=== PATIENT | male | born 1995 | race Caucasian/White ===

== ENCOUNTER 2017-03-29 15:52 | Inpatient (IN) | payer BC ==
[2017-03-29 16:30] LABS: BASO # 0.1 x10^3/uL (0.0-0.2); BASO % 1 % (0-3); EOS # 13.3 x10^3/uL (0.0-0.7); EOS % 52 % (0-3); HEMATOCRIT 41.9 % (39.0-53.0); HEMOGLOBIN 14.4 g/dL (13.0-17.5); LYMPH # 4.1 x10^3/uL (1.0-4.8); LYMPH % 16 % (24-48); MEAN CORPUSCULAR HEMOGLOBIN 30 pg (25-35); MEAN CORPUSCULAR HGB CONC 34 g/dL (31-37); MEAN CORPUSCULAR VOLUME 86 fL (79-100); MONO # 1.2 x10^3/uL (0.0-1.1); MONO % 5 % (0-9); NEUT # 6.7 x10^3uL (1.8-7.7); NEUT % 26 % (31-73); PLATELET COUNT 369 x10^3/uL (140-400); RED BLOOD COUNT 4.89 x10^6/uL (4.30-5.70); RED CELL DISTRIBUTION WIDTH 14.1 % (11.5-14.5); WHITE BLOOD COUNT 25.5 x10^3/uL (4.0-11.0)
[2017-03-29 16:38] LABS: ANION GAP 8 (6-14); BLOOD UREA NITROGEN 10 mg/dL (8-26); BUN/CREATININE RATIO 10 (6-20); CALCIUM 8.5 mg/dL (8.5-10.1); CARBON DIOXIDE 28 mmol/L (21-32); CHLORIDE 106 mmol/L (98-107); GFR 93.4; GLUCOSE 96 mg/dL (70-99); POTASSIUM 3.6 mmol/L (3.5-5.1); SODIUM 142 mmol/L (136-145)
[2017-03-29 16:40] LABS: ADD MAN DIFF? YES
[2017-03-29 16:46] LABS: ALBUMIN 3.8 g/dL (3.4-5.0); ALBUMIN/GLOBULIN RATIO 1.1 (1.0-1.7); ALK PHOS 106 U/L (46-116); ALT (SGPT) 52 U/L (16-63); AST (SGOT) 24 U/L (15-37); LIPASE 89 U/L (73-393); TOTAL BILIRUBIN 0.3 mg/dL (0.2-1.0); TOTAL PROTEIN 7.3 g/dL (6.4-8.2)
[2017-03-29] MEDS: ONDANSETRON PF 4 MG/2 ML VIAL. IV (17:06)
[2017-03-29] MEDS: IV NORMAL SALINE 1000ML BAG 1,000 ML IV ×2 (17:06→22:03)
[2017-03-29 17:16] LABS: BILIRUBIN,URINE NEGATIVE (NEG); CLARITY,URINE CLEAR; COLOR,URINE YELLOW; GLUCOSE,URINE NEGATIVE (NEG); NITRITE,URINE NEGATIVE (NEG); PROTEIN,URINE NEGATIVE (NEG-TRACE); UROBILINOGEN,URINE 0.2 mg/dL (0.2 mg/dL)
[2017-03-29 17:24] LABS: BACTERIA,URINE 0 /HPF (0-FEW); RBC,URINE OCC /HPF (0-2); WBC,URINE OCC /HPF (0-4)
[2017-03-29 17:40] LABS: % ATYL 6 % (0-0); % BANDS 1 % (0-9); % EOS 58 % (0-5); % LYMPHS 6 % (24-48); % MONOS 4 % (0-10); % SEGS 25 % (35-66); PLT ESTIMATE ADEQUATE (ADEQUATE)
[2017-03-29] MEDS: IOHEXOL 300 MG/ML 100ML VIAL. IV (18:15)
[2017-03-29] MEDS ORDERED: ONDANSETRON PF 4 MG/2 ML VIAL. IV ×2 (18:30)
[2017-03-29] MEDS ORDERED: MORPHINE SULFATE 2 MG/ML DISP.SYRIN. IV (18:30)
[2017-03-29] MEDS ORDERED: hydrALAZINE 20 MG/ML VIAL. IVP (18:30)
[2017-03-29] MEDS ORDERED: CONTRAST GIVEN MC (18:30)
[2017-03-29] MEDS ORDERED: traMADol 50 MG TABLET PO (18:30)
[2017-03-29] MEDS ORDERED: DOCUSATE SODIUM 100 MG CAPSULE. PO (18:30)
[2017-03-29] MEDS ORDERED: ACETAMINOPHEN 325 MG TABLET. PO (18:30)
[2017-03-29] MEDS: ENOXAPARIN 40 MG/0.4 ML SYRINGE. SQ (21:00)
[2017-03-30 05:03] LABS: ADD MAN DIFF? NO
[2017-03-30 05:15] LABS: BASO % 0 % (0-3); EOS # 11.5 x10^3/uL (0.0-0.7); EOS % 43 % (0-3); HEMATOCRIT 47.8 % (39.0-53.0); HEMOGLOBIN 16.2 g/dL (13.0-17.5); LYMPH # 3.7 x10^3/uL (1.0-4.8); LYMPH % 14 % (24-48); MEAN CORPUSCULAR HEMOGLOBIN 29 pg (25-35); MEAN CORPUSCULAR HGB CONC 34 g/dL (31-37); MEAN CORPUSCULAR VOLUME 86 fL (79-100); MONO # 1.3 x10^3/uL (0.0-1.1); MONO % 5 % (0-9); NEUT % 38 % (31-73); PLATELET COUNT 375 x10^3/uL (140-400); RED BLOOD COUNT 5.55 x10^6/uL (4.30-5.70); RED CELL DISTRIBUTION WIDTH 14.3 % (11.5-14.5); WHITE BLOOD COUNT 26.6 x10^3/uL (4.0-11.0)
[2017-03-30 05:23] LABS: ANION GAP 7 (6-14); BLOOD UREA NITROGEN 8 mg/dL (8-26); CALCIUM 8.4 mg/dL (8.5-10.1); CARBON DIOXIDE 27 mmol/L (21-32); CHLORIDE 106 mmol/L (98-107); GFR 93.4; GLUCOSE 89 mg/dL (70-99); POTASSIUM 3.5 mmol/L (3.5-5.1); SODIUM 140 mmol/L (136-145)
[2017-03-30] MEDS: IV NORMAL SALINE 1000ML BAG 1,000 ML IV ×2 (05:57→14:20)
[2017-03-30] MEDS: PANTOPRAZOLE 40 MG TABLET.DR. PO (07:30)
[2017-03-30 08:46] LABS: BARBITURATES NEG (NEG); BENZODIAZEPINES NEG (NEG); CANNABINOIDS NEG (NEG); COCAINE NEG (NEG); METHADONE NEG (NEG); OPIATES NEG (NEG); PHENCYCLIDINE NEG (NEG)
[2017-03-30 08:49] LABS: AMPHETAMINE/METHAMPHETAMINE NEG (NEG); ETHANOL, URINE NEG (NEG)
[2017-03-30] MEDS: ENOXAPARIN 40 MG/0.4 ML SYRINGE. SQ (21:00)
[2017-03-31 05:05] LABS: ADD MAN DIFF? NO
[2017-03-31 05:11] LABS: BASO % 0 % (0-3); EOS % 52 % (0-3); HEMATOCRIT 46.7 % (39.0-53.0); HEMOGLOBIN 15.9 g/dL (13.0-17.5); LYMPH # 2.9 x10^3/uL (1.0-4.8); LYMPH % 14 % (24-48); MEAN CORPUSCULAR HEMOGLOBIN 29 pg (25-35); MEAN CORPUSCULAR HGB CONC 34 g/dL (31-37); MEAN CORPUSCULAR VOLUME 86 fL (79-100); MONO # 1.1 x10^3/uL (0.0-1.1); MONO % 5 % (0-9); NEUT # 6.1 x10^3uL (1.8-7.7); NEUT % 29 % (31-73); PLATELET COUNT 359 x10^3/uL (140-400); RED BLOOD COUNT 5.43 x10^6/uL (4.30-5.70); WHITE BLOOD COUNT 21.1 x10^3/uL (4.0-11.0)
[2017-03-31 05:18] LABS: INR 1.1 (0.8-1.1); PROTHROMBIN TIME PATIENT 13.7 SEC (11.7-14.0)
[2017-03-31] MEDS: PANTOPRAZOLE 40 MG TABLET.DR. PO (05:24)
[2017-03-31 05:33] LABS: ANION GAP 7 (6-14); BLOOD UREA NITROGEN 8 mg/dL (8-26); CALCIUM 8.8 mg/dL (8.5-10.1); CARBON DIOXIDE 26 mmol/L (21-32); CHLORIDE 105 mmol/L (98-107); CREATININE 0.9 mg/dL (0.7-1.3); GFR 105.5; GLUCOSE 95 mg/dL (70-99); POTASSIUM 3.7 mmol/L (3.5-5.1); SODIUM 138 mmol/L (136-145)
[2017-03-31] MEDS ORDERED: LIDOCAINE WITH 8.4% SOD BICARB 3 ML DISP.SYRIN. ×2 (10:06→10:42)
[2017-03-31] MEDS: LIDOCAINE WITH 8.4% SOD BICARB 3 ML DISP.SYRIN. IJ (10:30)
[2017-03-31 14:28] LABS: BF CLARITY CLOUDY; BF COLOR YELLOW; BF RBC COUNT 6544 /cmm; BF SOURCE ASCITES; BF WBC COUNT 4912 /cmm
[2017-03-31 14:30] LABS: BF MON % 8 %
[2017-03-31 14:42] LABS: BF PMN % 92 %
[2017-03-31 14:47] LABS: BF OTHER % 0 %
[2017-03-31] MEDS ORDERED: PROPOFOL 40 ML IV (15:04)
[2017-03-31] MEDS ORDERED: LIDOCAINE 2% PF Vial for OR 5 ML VIAL. (15:04)
[2017-03-31] MEDS: predniSONE 20 MG TABLET PO (16:50)
[2017-03-31] MEDS: ENOXAPARIN 40 MG/0.4 ML SYRINGE. SQ (21:00)
[2017-04-01] MEDS: PANTOPRAZOLE 40 MG TABLET.DR. PO (08:36)
[2017-04-01] MEDS: predniSONE 20 MG TABLET PO (08:37)
[2017-04-02 09:14] LABS: BODY FLUID GLUCOSE 92 mg/dL (.)
[2017-04-02 09:14] LABS: BODY FLUID AMYLASE 12 U/L (.)
== END 2017-04-01 16:20 | disposition home or self-care (01) | DRG 389 ==
LOC: ER 15:52 → 4 NORTH 18:00
PROC: 0DB68ZX Excision of Stomach, Via Natural or Artificial Opening Endoscopic, Diagnostic (ICD-10-PCS; principal; 2017-03-31 15:15)
PROC: 0W9G3ZZ Drainage of Peritoneal Cavity, Percutaneous Approach (ICD-10-PCS; 2017-03-31 15:20)
DX: K56.7 Ileus, unspecified (principal); R18.8 Other ascites; K76.0 Fatty (change of) liver, not elsewhere classified; K52.81 Eosinophilic gastritis or gastroenteritis; K57.90 Diverticulosis of intestine, part unspecified, without perforation or abscess without bleeding; E66.9 Obesity, unspecified; J45.909 Unspecified asthma, uncomplicated; K21.9 Gastro-esophageal reflux disease without esophagitis; Z68.31 Body mass index [BMI] 31.0-31.9, adult; Z88.2 Allergy status to sulfonamides
CPT/HCPCS: 36415; 49083; 74177; 76705; 80048; 80053; 80307; 81001; 82150; 82945; 83690; 85007; 85025; 85610; 87045; 87071; 87075; 87177; 87205; 88305; 88342; 89050; 96361; 96374; 99285; 99285-25; J2405; J2704; J7030; J7512; Q9967

== ENCOUNTER → 2018-01-26 | Outpatient (CLI) | payer BC ==
[2017-04-01 11:00] VITALS: BP 137/93
[~2018-01-26] MED LIST: ACET325T9 PO; PANT40GR PO; PRED20TA PO
--- NOTE | 2018-01-26 16:38 | KCIC ---
ABDOMEN LTD History: Right upper quadrant pain Comparison: 03/19/2017 Findings: Multiple sonographic images of the abdomen are submitted. Abdominal aortic caliber is within normal limits up to 1.7 cm although suboptimally seen, proximal segment obscured. Inferior vena cava is suboptimally seen. Pancreas is not well-visualized due to bowel gas. There is coarsening of the hepatic echotexture. Right lobe of the liver measured 18.4 cm longitudinal. Right kidney measured 10.6 x 5.5 x 5.3 cm, no hydronephrosis. There is a focus of somewhat heterogeneous echogenicity of the mid pole of the right kidney about 1.9 x 1.9 x 2.1 cm, not associated with significant hypervascularity on color Doppler imaging. Gallbladder is present without intraluminal abnormality, wall thickening, or pericholecystic fluid. Common bile duct is within normal limits at 0.3 cm. Impression: 1. There is hepatic steatosis and mild hepatomegaly. 2. There may be a somewhat complex cyst of the midpole of the right kidney. 3. Midline structures are poorly visualized due to bowel gas. Electronically signed by: Carter Carpenter MD (01/26/2018 4:34 PM) [facility]-[id number]
== END | disposition home or self-care (01) ==
LOC: KCIC US 07:59
PROVIDERS: ATTEND Family Medicine
DX: K76.0 Fatty (change of) liver, not elsewhere classified (principal); R16.0 Hepatomegaly, not elsewhere classified; R10.11 Right upper quadrant pain
CPT/HCPCS: 76705

== ENCOUNTER 2020-03-05 16:46 | Inpatient (IN) | payer BC ==
[~2020-03-05] VITALS: Ht 185.4 cm; Wt 119.1 kg
--- NOTE | 2020-03-05 17:25 | PHYS DOC ---
Past Medical History Past Medical History: Asthma Past Surgical History: No Surgical History Smoking Status: Never Smoker Alcohol Use: Rarely Drug Use: None General Adult EDM: Chief Complaint: FEVER, shortness of air HPI: HPI: Patient is a 24 year old male who presented to ER for evaluation of cough, fever, trouble breathing. Patient was diagnosed with COVID-19 infection on February 24, he had not get any better, progressively getting worse. Patient smokes cigar. Patient denies any history of hypertension or diabetic. Patient is not on oxygen at home, he denies any history of asthma. Review of Systems: Review of Systems: Constitutional: Positive for fever or chills. [] Eyes: Denies change in visual acuity. [] HENT: Denies nasal congestion or sore throat. [] Respiratory: Positive for cough or shortness of breath. [] Cardiovascular: Denies chest pain or edema. [] GI: Denies abdominal pain, nausea, vomiting, bloody stools or diarrhea. [] : Denies dysuria. [] Musculoskeletal: Denies back pain or joint pain. [] Integument: Denies rash. [] Neurologic: Denies headache, focal weakness or sensory changes. [] Endocrine: Denies polyuria or polydipsia. [] Lymphatic: Denies swollen glands. [] Psychiatric: Denies depression or anxiety. [] Heart Score: Risk Factors: Risk Factors: DM, Current or recent (<one month) smoker, HTN, HLP, family his tory of CAD, obesity. Risk Scores: Score 0 - 3: 2.5% MACE over next 6 weeks - Discharge Home Score 4 - 6: 20.3% MACE over next 6 weeks - Admit for Clinical Observation Score 7 - 10: 72.7% MACE over next 6 weeks - Early Invasive Strategies Current Medications: Current Medications Medications (Trade) Dose Ordered Sig/Amna Start Time Stop Time Status Last Admin Dose Admin Acetaminophen (Tylenol) 1,000 mg 1X ONCE 03/05/20 17:30 03/05/20 17:31 UNV Sodium Chloride 1,000 ml @ 1,000 mls/hr 1X ONCE 03/05/20 17:30 03/05/20 18:29 Allergies: Allergies: Allergies Coded Allergies Type Severity Reaction Last Updated Verified Sulfa (Sulfonamide Antibiotics) Allergy Intermediate Swelling 03/31/17 Yes Physical Exam: PE: Constitutional: Well developed, well nourished, no acute distress, non-toxic appearance. [] HENT: Normocephalic, atraumatic, bilateral external ears normal, oropharynx moist, no oral exudates, nose normal. [] Eyes: PERRLA, EOMI, conjunctiva normal, no discharge. [] Neck: Normal range of motion, no tenderness, supple, no stridor. [] Cardiovascular sinus tachycardia, regular rhythm, no murmur [] Lungs & Thorax: Bilateral breath sounds were crackles throughout to auscultation , tachypneic Abdomen: Bowel sounds normal, soft, no tenderness, no masses, no pulsatile masses. [] Skin: Warm, dry, no erythema, no rash. [] Back: No tenderness, no CVA tenderness. [] Extremities: No tenderness, no cyanosis, no clubbing, ROM intact, no edema. [] Neurologic: Alert and oriented X 3, normal motor function, normal sensory function, no focal deficits noted. [] Psychologic: Affect normal, judgement normal, mood normal. [] Current Patient Data: Labs: Laboratory Tests Test 03/05/20 18:00 White Blood Count 7.2 x10^3/uL Red Blood Count 4.90 x10^6/uL Hemoglobin 14.3 g/dL Hematocrit 41.3 % Mean Corpuscular Volume 84 fL Mean Corpuscular Hemoglobin 29 pg Mean Corpuscular Hemoglobin Concent 35 g/dL Red Cell Distribution Width 13.6 % Platelet Count 266 x10^3/uL Neutrophils (%) (Auto) 66 % Lymphocytes (%) (Auto) 21 % Monocytes (%) (Auto) 12 % Eosinophils (%) (Auto) 0 % Basophils (%) (Auto) 1 % Neutrophils # (Auto) 4.7 x10^3/uL Lymphocytes # (Auto) 1.5 x10^3/uL Monocytes # (Auto) 0.9 x10^3/uL Eosinophils # (Auto) 0.0 x10^3/uL Basophils # (Auto) 0.1 x10^3/uL Current Medications Medications (Trade) Dose Ordered Sig/Amna Route PRN Reason Start Time Stop Time Status Last Admin Dose Admin Sodium Chloride 1,000 ml @ 1,000 mls/hr 1X ONCE IV 03/05/20 17:30 03/05/20 18:29 Acetaminophen (Tylenol) 1,000 mg 1X ONCE PO 03/05/20 17:30 03/05/20 17:31 DC Dexamethasone Sodium Phosphate (Decadron) 10 mg 1X ONCE IVP 03/05/20 18:00 03/05/20 18:01 DC Ceftriaxone Sodium (Rocephin) 1 gm 1X ONCE IVP 03/05/20 18:00 03/05/20 18:01 DC 03/05/20 18:00 Doxycycline Hyclate 100 mg/ Dextrose 100 ml @ 50 mls/hr 1X ONCE IV 03/05/20 18:00 03/05/20 19:59 Ondansetron HCl (Zofran) 4 mg PRN Q8HRS PRN IV NAUSEA/VOMITING 03/05/20 18:00 03/06/20 17:59 EKG: EKG: [] Radiology/Procedures: Radiology/Procedures: [facility] [address] [place] [address] IMAGING REPORT Signed PATIENT: CARLOS CASTLE ACCOUNT: [id number] : 1995 LOCATION: ER AGE: 24 SEX: M EXAM STATUS: REG ER ORD. PHYSICIAN: MILO GALLAGHER DO REASON: cough, fever, COVID-19 INFECTION PROCEDURE: CHEST AP ONLY INDICATION: Reason: cough, fever, COVID-19 INFECTION / Spl. Instructions: / History: COMPARISON: None. FINDINGS: Single view of chest obtained. Patchy opacities bilaterally. Cardiac silhouette is unremarkable. IMPRESSION: * Hypoexpanded exam with patchy opacities bilaterally which could be secondary to bilateral infiltrate. Electronically signed by: Fozia Mcduffie MD (03/05/2020 5:34 PM) [id number] DICTATED and SIGNED BY: FOZIA MCDUFFIE MD DATE: 03/05/20 [id number] 0 Course & Med Decision Making: Course & Med Decision Making Pertinent Labs and Imaging studies reviewed. (See chart for details) Patient is a 24-year-old male who presented to ER with cough, trouble breathing, fever. Patient was diagnosed with COVID-19 infection on February 24, he is getting worse. His oxygen saturation on room air is 90% and he is tachypneic and tachycardic. Patient will need to be admitted to hospital. Discussed with Dr. Caballero who agreed to admit the patient Dragon Disclaimer: French Disclaimer: This electronic medical record was generated, in whole or in part, using a voice recognition dictation system. Departure Departure Impression: Primary Impression: Pneumonia due to COVID-19 virus Additional Impression: Respiratory failure Disposition: ADMITTED INPT THIS HOSP Admitting Physician: [facility] (Dr. Caballero) Condition: STABLE Referrals: Terell PHILIPPE MD (PCP) MILO GALLAGHER DO Mar 05, 2020 17:25
[2020-03-05] MEDS ORDERED: IV NORMAL SALINE 1000ML BAG 1,000 ML IV ONE (17:30)
[2020-03-05] MEDS ORDERED: ACETAMINOPHEN 500 MG TABLET PO ONE (17:30)
--- NOTE | 2020-03-05 17:37 | RAD ---
INDICATION: Reason: cough, fever, COVID-19 INFECTION / Spl. Instructions: / History: COMPARISON: None. FINDINGS: Single view of chest obtained. Patchy opacities bilaterally. Cardiac silhouette is unremarkable. IMPRESSION: * Hypoexpanded exam with patchy opacities bilaterally which could be secondary to bilateral infiltra te. Electronically signed by: Marquis Narvaez MD (03/05/2020 5:34 PM) [id number]
--- NOTE | 2020-03-05 17:57 | PDOC1 ---
History and Physical Date of Admission Date of Admission DATE: 03/05/20 TIME: 17:55 Identification/Chief Complaint Chief Complaint Shortness of breath Source Source: Patient History of Present Illness History of Present Illness Mr Negrete is a 24yo M w/ PMHx GERD, asthma, obesity who presents to ED on 03/05/20 c/o progressive shortness of breath with cough, weakness, loss of appetite, and diarrhea. This has been progressing for the past 5 days and worsening. He initially felt ill on 02/25/20 and was tested positive for COVID 19 at urgent care. 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 Now feeling feverish and too weak to care for himself or feed himself. In ED he is breathing 22 times per minute with HR 124 with O2 saturations 90%. When asked to move he does desaturate to 87%, improves to 90% when sitting still. Chest radiograph shows patchy opacities bilateral that appear to be infiltrates. Labs with lymphopenia, AST 75, ALT 121. Given empiric rocephin, doxycycline, steroids Admitted for further care. Past Medical History Cardiovascular: No pertinent hx Pulmonary: Asthma GI: Other Heme/Onc: No pertinent hx Hepatobiliary: No pertinent hx Psych: No pertinent hx Rheumatologic: No pertinent hx Infectious disease: No pertinent hx Renal/: No pertinent hx Endocrine: No pertinent hx Past Surgical History Past Surgical History: No pertinent history Family History Family History: High Cholestrol, Hypertension Social History Smoke: <1 pack per day ALCOHOL: social Drugs: None Current Medications Current Medications Current Medications Sodium Chloride 1,000 ml @ 1,000 mls/hr 1X ONCE IV ; Start 03/05/20 at 17:30; Stop 03/05/20 at 18:29 Acetaminophen (Tylenol) 1,000 mg 1X ONCE PO ; Start 03/05/20 at 17:30; Stop 03/05/20 at 17:31; Status DC Dexamethasone Sodium Phosphate (Decadron) 10 mg 1X ONCE IVP ; Start 03/05/20 at 18:00; Stop 03/05/20 at 18:01 Ceftriaxone Sodium (Rocephin) 1 gm 1X ONCE IVP ; Start 03/05/20 at 18:00; Stop 03/05/20 at 18:01 Doxycycline Hyclate 100 mg/ Dextrose 100 ml @ 50 mls/hr 1X ONCE IV ; Start 03/05/20 at 18:00; Stop 03/05/20 at 19:59 Active Scripts Active Prednisone 20 Mg Tablet 60 Mg PO DAILY f/u with DR. Albright for tapering schedule Tylenol (Acetaminophen) 325 Mg Tablet 650 Mg PO PRN Q6HRS PRN Reported Protonix (Pantoprazole Sodium) 40 Mg Granpkt.dr 40 Mg PO DAILY Allergies Allergies: Coded Allergies: Sulfa (Sulfonamide Antibiotics) (Verified Allergy, Intermediate, Swelling, 03/31/17) ROS General: YES: Fatigue, Malaise; No: Chills, Night Sweats, Appetite, Other PSYCHOLOGICAL ROS: No: Anxiety, Behavioral Disorder, Concentration difficultie, Decreased libido, Depression, Disorientation, Hallucinations, Hostility, Irritablity, Memory difficulties, Mood Swings, Obsessive thoughts, Physical abuse, Sexual abuse, Sleep disturbances, Suicidal ideation, Other Eyes: No Blurry vision, No Decreased vision, No Double vision, No Dry eyes, No Excessive tearing, No Eye Pain, No Itchy Eyes, No Loss of vision, No Photophobia, No Scotomata, No Uses contacts, No Uses glasses, No Other HEENT: No: Heacaches, Visual Changes, Hearing change, Nasal congestion, Nasal discharge, Oral lesions, Sinus pain, Sore Throat, Epistaxis, Sneezing, Snoring, Tinnitus, Vertigo, Vocal changes, Other ALLERGY AND IMMUNOLOGY: No: Hives, Insect Bite Sensitivity, Itchy/Watery Eyes, Nasal Congestion, Post Nasal Drip, Seasonal Allergies, Other Hematological and Lymphatic: No: Bleeding Problems, Blood Clots, Blood Transfusions, Brusing, Night Sweats, Pallor, Swollen Lymph Nodes, Other ENDOCRINE: No: Breast Changes, Galactorrhea, Hair Pattern Changes, Hot Flashes, Malaise/lethargy, Mood Swings, Palpitations, Polydipsia/polyuria, Skin Changes, Temperature Intolerance, Unexpected Weight Changes, Other Respiratory: YES: Cough, Shortness of breath, SOB with excertion; No: Hemoptysis, Orthopnea, Pleuritic Pain, Sputum Changes, Stridor, Tachypnea, Wheezing, Other Cardiovascular: yes Palpitations; No Chest Pain, No Orthopnea, No Paroxysmal Noc. Dyspnea, No Edema, No Lt Headedness, No Other Gastrointestinal: Yes Nausea, Yes Abdominal Pain, Yes Diarrhea; No Vomiting, No Constipation, No Melena, No Hematochezia, No Other Genitourinary: No Dysuria, No Frequency, No Incontinence, No Hematuria, No Retention, No Discharge, No Urgency, No Pain, No Flank Pain, No Other, No , No , No , No , No , No , No Musculoskeletal: Yes Muscle Pain, Yes Muscular Weakness; No Gait Disturbance, No Joint Pain, No Joint Stiffness, No Joint Swelling, No Pain In:, No Swelling In:, No Other Neurological: No Behavorial Changes, No Bowel/Bladder ControlChng, No Confu alia, No Dizziness, No Gait Disturbance, No Headaches, No Impaired Coord/balance, No Memory Loss, No Numbness/Tingling, No Seizures, No Speech Problems, No Tremors, No Visual Changes, No Weakness, No Other Skin: No Dry Skin, No Eczema, No Hair Changes, No Lumps, No Mole Changes, No Mottling, No Nail Changes, No Pruritus, No Rash, No Skin Lesion Changes, No Oth er, No Acne VTE Prophylaxis Ordered VTE Prophylaxis Devices: Contraindicated VTE Pharmacological Prophylaxi: Yes Assessment/Plan Assessment/Plan A/P: Pneumonia - due to COVID 19, likely developing a secondary bacterial community acquired pneumonia as well. Given doxycycline and rocephin empirically. Will continue Acute respiratory failure - hypoxic with movement in ED, good O2 saturations when sitting still, therefore given steroid therapy. Will continue to monitor O2 status to guide further therapy COVID 19 - positive 9 days prior to presentation, with mild O2 desaturations and apparent improvement with steroids will continue supportive care, steroids and monitor for need for further treatments such as remdesivir Asthma - mild intermittent by history Diarrhea - likely related to COVID 19 Transaminitis - likely covid related, will monitor FEN - General diet PPX - Lovenox FULL CODE dispo - inpatient for above Justifications for Admission Other Justification CORBIN NAVARRETE MD Mar 05, 2020 17:57
[2020-03-05] MEDS ORDERED: ONDANSETRON PF 4 MG/2 ML VIAL. IV PRN ×2 (18:00→19:15)
[2020-03-05] MEDS ORDERED: cefTRIAXone IV Push 1 GM VIAL. IVP ONE (18:00)
[2020-03-05] MEDS ORDERED: DEXAMETHASONE SOD PHOS 4 MG/ML VIAL IVP ONE (18:00)
[2020-03-05] MEDS ORDERED: DOXYCYCLINE HYCLATE 100 MG in IV DEXTROSE 5% 100ML 100 ML IV ONE (18:00)
[2020-03-05 18:11] LABS: BASO # 0.1 x10^3/uL (0.0-0.2); BASO % 1 % (0-3); EOS % 0 % (0-3); HEMATOCRIT 41.3 % (39.0-53.0); HEMOGLOBIN 14.3 g/dL (13.0-17.5); LYMPH # 1.5 x10^3/uL (1.0-4.8); LYMPH % 21 % (24-48); MEAN CORPUSCULAR HEMOGLOBIN 29 pg (25-35); MEAN CORPUSCULAR HGB CONC 35 g/dL (31-37); MEAN CORPUSCULAR VOLUME 84 fL (79-100); MONO # 0.9 x10^3/uL (0.0-1.1); MONO % 12 % (0-9); NEUT # 4.7 x10^3/uL (1.8-7.7); NEUT % 66 % (31-73); PLATELET COUNT 266 x10^3/uL (140-400); RED CELL DISTRIBUTION WIDTH 13.6 % (11.5-14.5); WHITE BLOOD COUNT 7.2 x10^3/uL (4.0-11.0)
[2020-03-05 18:19] LABS: CALCIUM 8.5 mg/dL (8.5-10.1); POTASSIUM 3.5 mmol/L (3.5-5.1)
[2020-03-05 18:25] LABS: ALBUMIN 3.4 g/dL (3.4-5.0); ALBUMIN/GLOBULIN RATIO 0.9 (1.0-1.7); TOTAL BILIRUBIN 0.6 mg/dL (0.2-1.0); TOTAL PROTEIN 7.4 g/dL (6.4-8.2)
[2020-03-05 18:29] LABS: INFLUENZA A PATIENT NEGATIVE (NEGATIVE); INFLUENZA B PATIENT NEGATIVE (NEGATIVE)
[2020-03-05] MEDS ORDERED: guaiFENesin DM 200MG/20MG 10 ML SYRUP PO PRN (19:15)
[2020-03-05] MEDS ORDERED: ACETAMINOPHEN 325 MG TABLET. PO PRN (19:15)
[2020-03-05] MEDS ORDERED: LOPERAMIDE 2 MG CAPSULE PO PRN (19:15)
[2020-03-05 21:00] VITALS: BP 132/74
[2020-03-05] MEDS: THIAMINE 100 MG TABLET. PO SCH (21:14)
[2020-03-05] MEDS: ENOXAPARIN 40 MG/0.4 ML SYRINGE. SQ SCH (21:15)
[2020-03-05] MEDS: ZINC SULFATE 220 MG CAPSULE. PO SCH (21:15)
--- NOTE | 2020-03-05 21:30 | NUR ---
ADMIT NOTE: RECEIVED PT FROM ED VIA GURNEY, PT AMBULATED FROM GURNEY TO ROOM TO BED , SAT 93 % , PT C/O OVERALL WEAKNESS AND SOA. LUNG SOUNDS CLEARS EXCEPT IN RIGHT LOWER LOBE. [place] PAIN. ASSESSMENT AND DATA BASE COMPLETED, DISCUSSED POC VERBALIZED UNDERSTANDING AND AGREEABLE, BOX LUNCH GIVEN . PT TOLERATED WELL. TEMP 99.8 DURING THE NIGHT PT AWAKEN SWEATY TEMP 97.4 BED LINEN CHANGED AND GOWN CHANGED. 02 @ 2L PLACED AFTER SAT DECREASED TO 87 % PT AWAKE AND DENIES SOA.WILL CONTINUE WITH CURRENT PLAN OF CARE ,WILL REPORT CHANGES OR ABNORMAL FINDINGS.
[2020-03-05 23:00] VITALS: BP 112/64
[2020-03-06 03:00] VITALS: BP 131/69
[2020-03-06 07:00] VITALS: BP 143/80
[2020-03-06] MEDS: THIAMINE 100 MG TABLET. PO SCH (08:08)
[2020-03-06] MEDS: DEXAMETHASONE 4 MG TABLET PO SCH (08:08)
[2020-03-06] MEDS: ZINC SULFATE 220 MG CAPSULE. PO SCH (08:08)
[2020-03-06 09:53] LABS: ALBUMIN 3.5 g/dL (3.4-5.0); ALBUMIN/GLOBULIN RATIO 0.8 (1.0-1.7); CALCIUM 9.3 mg/dL (8.5-10.1); CREATININE 0.8 mg/dL (0.7-1.3); TOTAL PROTEIN 8.1 g/dL (6.4-8.2)
[2020-03-06 09:54] LABS: GFR 117.8; POTASSIUM 4.1 mmol/L (3.5-5.1); TOTAL BILIRUBIN 0.5 mg/dL (0.2-1.0)
[2020-03-06] MEDS: AZITHROMYCIN 500 MG in IV NORMAL SALINE 250ML 250 ML IV SCH (10:08)
[2020-03-06] MEDS: cefTRIAXone IV Push 1 GM VIAL. IVP SCH (10:09)
--- NOTE | 2020-03-06 10:16 | CONS ---
DATE OF CONSULTATION: PULMONARY CONSULTATION ATTENDING PHYSICIAN: Jameel Caballero MD REASON FOR CONSULTATION: COVID pneumonia. HISTORY OF PRESENT ILLNESS: The patient is a 24-year-old male with a BMI of 35. The patient was brought into the hospital with complaint of shortness of breath and cough. The patient was tested positive with COVID on 02/25/2020. The patient's saturations were 90% on arrival and heart rate was 124. Currently, he is off of oxygen. His T-max of 99.8. He said he does not have any history of tobacco use, but has history of asthma. PAST MEDICAL HISTORY: Significant for asthma, which has been under control. PAST SURGICAL HISTORY: None. ALLERGIES: SULFA. MEDICATIONS: Reviewed as listed in the MRAD. REVIEW OF SYSTEMS: Ten-point system obtained. Pertinent positives discussed in my history of present illness, otherwise noncontributory. All systems that were negative were reviewed as well. SOCIAL HISTORY: Nonsmoker. FAMILY HISTORY: Noncontributory to lungs. PHYSICAL EXAMINATION: VITAL SIGNS: T-max of 99.8, blood pressure stable, pulse ox 96% on 2 liters, but currently on room air. GENERAL: Visual exam done due to COVID-19. No obvious respiratory distress. SKIN: No skin rash. LABORATORY DATA: Reviewed. White cell count 7.2, hemoglobin 14.3. Influenza screen negative. BUN and creatinine normal. IMPRESSION: 1. Dyspnea with acute hypoxic respiratory failure, present on admission due to COVID-19 pneumonia. Clinically improving now currently on room air. 2. Abnormal chest x-ray with mild perihilar infiltrates suggestive of viral pneumonia. 3. History of asthma, under control. RECOMMENDATIONS: 1. Keep saturation 92 and above. Currently on room air. 2. Continue dexamethasone. 3. Empiric antibiotic. 4. Lovenox for DVT prophylaxis. 5. We will hold off on remdesivir at present. 6. Clinically stable. Watch for another 24 hours, if he remains on room air, he could be discharged home. We will be available for any further recommendations. We will see him on a p.r.n. basis. CLINT FLORES MD DR: FABIAN/may JOB#: [id number] / [id number]
--- NOTE | 2020-03-06 10:33 | PDOC ---
PROGRESS NOTES Date of Service: DATE: 03/06/20 TIME: 10:33 Chief Complaint Chief Complaint IMPRESSION Assessment/Plan A/P: Pneumonia - due to COVID 19, likely developing a secondary bacterial community acquired pneumonia as well. Given doxycycline and rocephin empirically. Will continue Acute HYPOXIC respiratory failure - hypoxic with movement in ED, good O2 saturations when sitting still, therefore given steroid therapy. Will continue to monitor O2 status to guide further therapy, PULMONARY CONSULTED COVID 19 - positive 9 days prior to presentation, with mild O2 desaturations and apparent improvement with steroids will continue supportive care, steroids and monitor for need for further treatments such as remdesivir Asthma - mild intermittent by history Diarrhea - likely related to COVID 19 Transaminitis - likely covid related, will monitor FEN - General diet PPX - Lovenox FULL CODE dispo - inpatient for above O2 SUPPORT D/W DR FLORES, NEEDS ANOTHER DAY, NOW ON 2 LITERS NC Justifications for Admission Justifications for Admission Other Justification, HYPOXIA History of Present Illness History of Present Illness Identification/Chief Complaint Chief Complaint Shortness of breath Source Source: Patient History of Present Illness History of Present Illness Mr Negrete is a 24yo M w/ PMHx GERD, asthma, obesity who presents to ED on 03/05/20 c/o progressive shortness of breath with cough, weakness, loss of appetite, and diarrhea. This has been progressing for the past 5 days and worsening. He initially felt ill on 02/25/20 and was tested positive for COVID 19 at urgent care. 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 Now feeling feverish and too weak to care for himself or feed himself. In ED he is breathing 22 times per minute with HR 124 with O2 saturations 90%. When asked to move he does desaturate to 87%, improves to 90% when sitting still. Chest radiograph shows patchy opacities bilateral that appear to be infiltrates. Labs with lymphopenia, AST 75, ALT 121. Given empiric rocephin, doxycycline, steroids Admitted for further care. Past Medical History Cardiovascular: No pertinent hx Pulmonary: Asthma GI: Other Heme/Onc: No pertinent hx Hepatobiliary: No pertinent hx Psych: No pertinent hx Rheumatologic: No pertinent hx Infectious disease: No pertinent hx Renal/: No pertinent hx Endocrine: No pertinent hx Past Surgical History Past Surgical History: No pertinent history Family History Family History: High Cholestrol, Hypertension Social History Smoke: <1 pack per day ALCOHOL: social Drugs: None Current Medications 1-25 MORE HYPOXIC WITH ACTIVITY D/W DR FLORES IN [place] keep another day Vitals Vitals Vital Signs Date Time Temp Pulse Resp B/P (MAP) Pulse Ox O2 Delivery O2 Flow Rate FiO2 03/06/20 08:14 Nasal Cannula 2.0 03/06/20 07:00 97.3 75 20 143/80 (101) 96 97.3 Physical Exam General: Alert, Oriented X3, Cooperative, mild distress Heart: Regular rate, Normal S1, Normal S2 Lungs: Clear, Crackles Abdomen: Normal bowel sounds, Soft, No tenderness Extremities: No clubbing, No cyanosis Skin: No rashes Labs LABS Laboratory Tests Test 03/05/20 18:00 03/06/20 08:50 White Blood Count 7.2 x10^3/uL (4.0-11.0) Red Blood Count 4.90 x10^6/uL (4.30-5.70) Hemoglobin 14.3 g/dL (13.0-17.5) Hematocrit 41.3 % (39.0-53.0) Mean Corpuscular Volume 84 fL (79-100) Mean Corpuscular Hemoglobin 29 pg (25-35) Mean Corpuscular Hemoglobin Concent 35 g/dL (31-37) Red Cell Distribution Width 13.6 % (11.5-14.5) Platelet Count 266 x10^3/uL (140-400) Neutrophils (%) (Auto) 66 % (31-73) Lymphocytes (%) (Auto) 21 % (24-48) Monocytes (%) (Auto) 12 % (0-9) Eosinophils (%) (Auto) 0 % (0-3) Basophils (%) (Auto) 1 % (0-3) Neutrophils # (Auto) 4.7 x10^3/uL (1.8-7.7) Lymphocytes # (Auto) 1.5 x10^3/uL (1.0-4.8) Monocytes # (Auto) 0.9 x10^3/uL (0.0-1.1) Eosinophils # (Auto) 0.0 x10^3/uL (0.0-0.7) Basophils # (Auto) 0.1 x10^3/uL (0.0-0.2) Sodium Level 137 mmol/L (136-145) 141 mmol/L (136-145) Potassium Level 3.5 mmol/L (3.5-5.1) 4.1 mmol/L (3.5-5.1) Chloride Level 100 mmol/L (98-107) 103 mmol/L (98-107) Carbon Dioxide Level 28 mmol/L (21-32) 27 mmol/L (21-32) Anion Gap 9 (6-14) 11 (6-14) Blood Urea Nitrogen 9 mg/dL (8-26) 12 mg/dL (8-26) Creatinine 1.0 mg/dL (0.7-1.3) 0.8 mg/dL (0.7-1.3) Estimated GFR (Cockcroft-Gault) 91.0 117.8 BUN/Creatinine Ratio 9 (6-20) 15 (6-20) Glucose Level 103 mg/dL (70-99) 120 mg/dL (70-99) Lactic Acid Level 0.7 mmol/L (0.4-2.0) Calcium Level 8.5 mg/dL (8.5-10.1) 9.3 mg/dL (8.5-10.1) Total Bilirubin 0.6 mg/dL (0.2-1.0) 0.5 mg/dL (0.2-1.0) Aspartate Amino Transf (AST/SGOT) 75 U/L (15-37) 75 U/L (15-37) Alanine Aminotransferase (ALT/SGPT) 121 U/L (16-63) 140 U/L (16-63) Alkaline Phosphatase 82 U/L (46-116) 87 U/L (46-116) Total Protein 7.4 g/dL (6.4-8.2) 8.1 g/dL (6.4-8.2) Albumin 3.4 g/dL (3.4-5.0) 3.5 g/dL (3.4-5.0) Albumin/Globulin Ratio 0.9 (1.0-1.7) 0.8 (1.0-1.7) Influenza Type A Antigen Negative (NEGATIVE) Influenza Type B Antigen Negative (NEGATIVE) Assessment and Plan Assessmemt and Plan Problems Medical Problems: (1) Pneumonia due to COVID-19 virus Status: Acute (2) Respiratory failure Status: Acute Comment Review of Relevant I have reviewed the following items sergei (where applicable) has been applied. Labs Laboratory Tests Test 03/05/20 18:00 03/06/20 08:50 White Blood Count 7.2 x10^3/uL (4.0-11.0) Red Blood Count 4.90 x10^6/uL (4.30-5.70) Hemoglobin 14.3 g/dL (13.0-17.5) Hematocrit 41.3 % (39.0-53.0) Mean Corpuscular Volume 84 fL (79-100) Mean Corpuscular Hemoglobin 29 pg (25-35) Mean Corpuscular Hemoglobin Concent 35 g/dL (31-37) Red Cell Distribution Width 13.6 % (11.5-14.5) Platelet Count 266 x10^3/uL (140-400) Neutrophils (%) (Auto) 66 % (31-73) Lymphocytes (%) (Auto) 21 % (24-48) Monocytes (%) (Auto) 12 % (0-9) Eosinophils (%) (Auto) 0 % (0-3) Basophils (%) (Auto) 1 % (0-3) Neutrophils # (Auto) 4.7 x10^3/uL (1.8-7.7) Lymphocytes # (Auto) 1.5 x10^3/uL (1.0-4.8) Monocytes # (Auto) 0.9 x10^3/uL (0.0-1.1) Eosinophils # (Auto) 0.0 x10^3/uL (0.0-0.7) Basophils # (Auto) 0.1 x10^3/uL (0.0-0.2) Sodium Level 137 mmol/L (136-145) 141 mmol/L (136-145) Potassium Level 3.5 mmol/L (3.5-5.1) 4.1 mmol/L (3.5-5.1) Chloride Level 100 mmol/L (98-107) 103 mmol/L (98-107) Carbon Dioxide Level 28 mmol/L (21-32) 27 mmol/L (21-32) Anion Gap 9 (6-14) 11 (6-14) Blood Urea Nitrogen 9 mg/dL (8-26) 12 mg/dL (8-26) Creatinine 1.0 mg/dL (0.7-1.3) 0.8 mg/dL (0.7-1.3) Estimated GFR (Cockcroft-Gault) 91.0 117.8 BUN/Creatinine Ratio 9 (6-20) 15 (6-20) Glucose Level 103 mg/dL (70-99) 120 mg/dL (70-99) Lactic Acid Level 0.7 mmol/L (0.4-2.0) Calcium Level 8.5 mg/dL (8.5-10.1) 9.3 mg/dL (8.5-10.1) Total Bilirubin 0.6 mg/dL (0.2-1.0) 0.5 mg/dL (0.2-1.0) Aspartate Amino Transf (AST/SGOT) 75 U/L (15-37) 75 U/L (15-37) Alanine Aminotransferase (ALT/SGPT) 121 U/L (16-63) 140 U/L (16-63) Alkaline Phosphatase 82 U/L (46-116) 87 U/L (46-116) Total Protein 7.4 g/dL (6.4-8.2) 8.1 g/dL (6.4-8.2) Albumin 3.4 g/dL (3.4-5.0) 3.5 g/dL (3.4-5.0) Albumin/Globulin Ratio 0.9 (1.0-1.7) 0.8 (1.0-1.7) Influenza Type A Antigen Negative (NEGATIVE) Influenza Type B Antigen Negative (NEGATIVE) Laboratory Tests Test 03/05/20 18:00 03/06/20 08:50 White Blood Count 7.2 x10^3/uL (4.0-11.0) Red Blood Count 4.90 x10^6/uL (4.30-5.70) Hemoglobin 14.3 g/dL (13.0-17.5) Hematocrit 41.3 % (39.0-53.0) Mean Corpuscular Volume 84 fL (79-100) Mean Corpuscular Hemoglobin 29 pg (25-35) Mean Corpuscular Hemoglobin Concent 35 g/dL (31-37) Red Cell Distribution Width 13.6 % (11.5-14.5) Platelet Count 266 x10^3/uL (140-400) Neutrophils (%) (Auto) 66 % (31-73) Lymphocytes (%) (Auto) 21 % (24-48) Monocytes (%) (Auto) 12 % (0-9) Eosinophils (%) (Auto) 0 % (0-3) Basophils (%) (Auto) 1 % (0-3) Neutrophils # (Auto) 4.7 x10^3/uL (1.8-7.7) Lymphocytes # (Auto) 1.5 x10^3/uL (1.0-4.8) Monocytes # (Auto) 0.9 x10^3/uL (0.0-1.1) Eosinophils # (Auto) 0.0 x10^3/uL (0.0-0.7) Basophils # (Auto) 0.1 x10^3/uL (0.0-0.2) Sodium Level 137 mmol/L (136-145) 141 mmol/L (136-145) Potassium Level 3.5 mmol/L (3.5-5.1) 4.1 mmol/L (3.5-5.1) Chloride Level 100 mmol/L (98-107) 103 mmol/L (98-107) Carbon Dioxide Level 28 mmol/L (21-32) 27 mmol/L (21-32) Anion Gap 9 (6-14) 11 (6-14) Blood Urea Nitrogen 9 mg/dL (8-26) 12 mg/dL (8-26) Creatinine 1.0 mg/dL (0.7-1.3) 0.8 mg/dL (0.7-1.3) Estimated GFR (Cockcroft-Gault) 91.0 117.8 BUN/Creatinine Ratio 9 (6-20) 15 (6-20) Glucose Level 103 mg/dL (70-99) 120 mg/dL (70-99) Lactic Acid Level 0.7 mmol/L (0.4-2.0) Calcium Level 8.5 mg/dL (8.5-10.1) 9.3 mg/dL (8.5-10.1) Total Bilirubin 0.6 mg/dL (0.2-1.0) 0.5 mg/dL (0.2-1.0) Aspartate Amino Transf (AST/SGOT) 75 U/L (15-37) 75 U/L (15-37) Alanine Aminotransferase (ALT/SGPT) 121 U/L (16-63) 140 U/L (16-63) Alkaline Phosphatase 82 U/L (46-116) 87 U/L (46-116) Total Protein 7.4 g/dL (6.4-8.2) 8.1 g/dL (6.4-8.2) Albumin 3.4 g/dL (3.4-5.0) 3.5 g/dL (3.4-5.0) Albumin/Globulin Ratio 0.9 (1.0-1.7) 0.8 (1.0-1.7) Influenza Type A Antigen Negative (NEGATIVE) Influenza Type B Antigen Negative (NEGATIVE) Medications Current Medications Sodium Chloride 1,000 ml @ 1,000 mls/hr 1X ONCE IV Last administered on 03/05/20at 18:15; Start 03/05/20 at 17:30; Stop 03/05/20 at 18:29; Status DC Acetaminophen (Tylenol) 1,000 mg 1X ONCE PO Last administered on 03/05/20at 18:16; Start 03/05/20 at 17:30; Stop 03/05/20 at 17:31; Status DC Dexamethasone Sodium Phosphate (Decadron) 10 mg 1X ONCE IVP Last administered on 03/05/20at 18:17; Start 03/05/20 at 18:00; Stop 03/05/20 at 18:01; Status DC Ceftriaxone Sodium (Rocephin) 1 gm 1X ONCE IVP Last administered on 03/05/20at 18:00; Start 03/05/20 at 18:00; Stop 03/05/20 at 18:01; Status DC Doxycycline Hyclate 100 mg/ Dextrose 100 ml @ 50 mls/hr 1X ONCE IV Last admi nistered on 03/05/20at 18:15; Start 03/05/20 at 18:00; Stop 03/05/20 at 19:59; Status DC Ondansetron HCl (Zofran) 4 mg PRN Q8HRS PRN IV NAUSEA/VOMITING Last administered on 03/05/20at 18:16; Start 03/05/20 at 18:00; Stop 03/05/20 at 19:16; Status DC Ondansetron HCl (Zofran) 4 mg PRN Q4HRS PRN IV NAUSEA/VOMITING; Start 03/05/20 at 19:15 Enoxaparin Sodium (Lovenox 40mg Syringe) 40 mg Q24H SQ Last administered on 03/05/20at 21:15; Start 03/05/20 at 21:00 Zinc Sulfate (Orazinc) 220 mg DAILY PO Last administered on 03/06/20at 08:08; Start 03/05/20 at 19:30 Thiamine Mononitrate (Vitamin B-1) 100 mg DAILY PO Last administered on 03/06/20 at 08:08; Start 03/05/20 at 19:30 Guaifenesin (Robitussin Dm) 10 ml PRN Q6HRS PRN PO COUGH; Start 03/05/20 at 19:15 Loperamide HCl (Imodium) 2 mg PRN Q15MIN PRN PO DIARRHEA; Start 03/05/20 at 19:15 Acetaminophen (Tylenol) 650 mg PRN Q6HRS PRN PO MILD PAIN / TEMP > 100.3'F; Start 03/05/20 at 19:15 Ceftriaxone Sodium (Rocephin) 1 gm Q24H IVP Last administered on 03/06/20at 10:09; Start 03/06/20 at 10:00 Azithromycin 500 mg/Sodium Chloride 250 ml @ 250 mls/hr Q24H IV Last administered on 03/06/20at 10:08; Start 03/06/20 at 10:00 Dexamethasone (Decadron) 4 mg DAILYWBKFT PO Last administered on 03/06/20at 08:08; Start 03/06/20 at 08:00 Active Scripts Active Prednisone 20 Mg Tablet 60 Mg PO DAILY f/u with DR. Albright for tapering schedule Tylenol (Acetaminophen) 325 Mg Tablet 650 Mg PO PRN Q6HRS PRN Reported Protonix (Pantoprazole Sodium) 40 Mg Granpkt.dr 40 Mg PO DAILY Vitals/I & O Vital Sign - Last 24 Hours 03/05/20 03/05/20 03/05/20 03/05/20 16:50 17:46 18:16 18:46 Temp 99.9 99.9 Pulse 116 110 111 110 Resp 20 16 16 16 B/P (MAP) 132/74 (93) 120/73 (89) 122/78 (93) 125/70 (88) Pulse Ox 92 92 91 94 O2 Delivery Room Air Room Air Room Air Room Air 03/05/20 03/05/20 03/05/20 03/05/20 19:16 20:30 21:00 23:00 Temp 99.8 97.2 99.8 97.2 Pulse 109 85 74 Resp 16 22 17 B/P (MAP) 123/66 (85) 132/74 (93) 112/64 (80) Pulse Ox 94 96 96 O2 Delivery Room Air Room Air Room Air 03/06/20 03/06/20 03/06/20 03:00 07:00 08:14 Temp 98.6 97.3 98.6 97.3 Pulse 70 75 Resp 20 20 B/P (MAP) 131/69 (89) 143/80 (101) Pulse Ox 94 96 O2 Delivery Room Air Nasal Cannula Nasal Cannula O2 Flow Rate 2.0 2.0 Intake and Output 03/05/20 03/05/20 03/06/20 15:00 23:00 07:00 Intake Total 800 ml Output Total 1500 ml Balance -700 ml Justicifation of Admission Dx: Justifications for Admission: Justification of Admission Dx: Yes Comminuty Aquired Pneumonia: Hypoxemia JUAQUIN ARTEAGA MD Mar 06, 2020 10:33
[2020-03-06 11:00] VITALS: BP 124/71
[2020-03-06] MEDS: LACTOBACILLUS RHAMNOSUS GG 1 CAPSULE. PO SCH ×2 (11:42→20:40)
--- NOTE | 2020-03-06 13:02 | NUR ---
SW following for discharge planning. Spoke with RN and reviewed chart. Pt COVID pending. Pt from home with parents. Pt currently on 2l 02 with no home 02. Pt on IV Rocephin and IV azithromycin. SW following.
[2020-03-06 14:50] VITALS: BP 107/55
[2020-03-06 19:00] VITALS: BP 117/71
[2020-03-06] MEDS: ENOXAPARIN 40 MG/0.4 ML SYRINGE. SQ SCH (20:40)
[2020-03-06 23:00] VITALS: BP 124/73
[2020-03-07 03:00] VITALS: BP 121/78
--- NOTE | 2020-03-07 06:49 | PDOC ---
PROGRESS NOTES Date of Service: DATE: 03/07/20 TIME: 06:48 Chief Complaint Chief Complaint IMPRESSION Assessment/Plan A/P: Pneumonia - due to COVID 19, likely developing a secondary bacterial community acquired pneumonia as well. Given doxycycline and rocephin empirically. Will continue Acute HYPOXIC respiratory failure - hypoxic with movement in ED, good O2 saturations when sitting still, therefore given steroid therapy. Will continue to monitor O2 status to guide further therapy, PULMONARY CONSULTED COVID 19 - positive 9 days prior to presentation, with mild O2 desaturations and apparent improvement with steroids will continue supportive care, steroids and monitor for need for further treatments such as remdesivir Asthma - mild intermittent by history Diarrhea - likely related to COVID 19 Transaminitis - likely covid related, will monitor FEN - General diet PPX - Lovenox FULL CODE dispo - inpatient for above O2 SUPPORT START REMDESIVIR 5 DAY RX D/W DR FLORES, AND RN D/W DR FLORES, NEEDS ANOTHER DAY, NOW ON 2 LITERS NC Justifications for Admission Justifications for Admission Other Justification, HYPOXIA History of Present Illness History of Present Illness Identification/Chief Complaint Chief Complaint Shortness of breath Source Source: Patient History of Present Illness History of Present Illness Mr Castle is a 24yo M w/ PMHx GERD, asthma, obesity who presents to ED on 03/05/20 c/o progressive shortness of breath with cough, weakness, loss of appetite, and diarrhea. This has been progressing for the past 5 days and worsening. He initially felt ill on 02/25/20 and was tested positive for COVID 19 at urgent care. 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 Now feeling feverish and too weak to care for himself or feed himself. In ED he is breathing 22 times per minute with HR 124 with O2 saturations 90%. When asked to move he does desaturate to 87%, improves to 90% when sitting still. Chest radiograph shows patchy opacities bilateral that appear to be infiltrates. Labs with lymphopenia, AST 75, ALT 121. Given empiric rocephin, doxycycline, steroids Admitted for further care. Past Medical History Cardiovascular: No pertinent hx Pulmonary: Asthma GI: Other Heme/Onc: No pertinent hx Hepatobiliary: No pertinent hx Psych: No pertinent hx Rheumatologic: No pertinent hx Infectious disease: No pertinent hx Renal/: No pertinent hx Endocrine: No pertinent hx Past Surgical History Past Surgical History: No pertinent history Family History Family History: High Cholestrol, Hypertension Social History Smoke: <1 pack per day ALCOHOL: social Drugs: None Current Medications 1-25 MORE HYPOXIC WITH ACTIVITY D/W DR FLORES IN [place] keep another day Vitals Vitals Vital Signs Date Time Temp Pulse Resp B/P (MAP) Pulse Ox O2 Delivery O2 Flow Rate FiO2 03/07/20 03:00 99.2 99 20 121/78 (92) 92 Room Air 99.2 03/06/20 20:00 2.0 Physical Exam General: Alert, Oriented X3, Cooperative, mild distress Heart: Regular rate, Normal S1, Normal S2 Lungs: Clear, Crackles Abdomen: Normal bowel sounds, Soft, No tenderness Extremities: No clubbing, No cyanosis Skin: No rashes Labs LABS Signed PATIENT: CARLOS CASTLE ACCOUNT: [id number] : 1995 LOCATION: ER AGE: 24 SEX: M EXAM STATUS: REG ER ORD. PHYSICIAN: MILO GALLAGHER DO REASON: cough, fever, COVID-19 INFECTION PROCEDURE: CHEST AP ONLY INDICATION: Reason: cough, fever, COVID-19 INFECTION / Spl. Instructions: / History: COMPARISON: None. FINDINGS: Single view of chest obtained. Patchy opacities bilaterally. Cardiac silhouette is unremarkable. IMPRESSION: * Hypoexpanded exam with patchy opacities bilaterally which could be secondary to bilateral infiltrate. Electronically signed by: Fozia Mcduffie MD (03/05/2020 5:34 PM) [id number] DICTATED and SIGNED BY: FOZIA MCDUFFIE MD DATE: 03/05/20 [id number] Laboratory Tests Test 03/06/20 08:50 Sodium Level 141 mmol/L (136-145) Potassium Level 4.1 mmol/L (3.5-5.1) Chloride Level 103 mmol/L (98-107) Carbon Dioxide Level 27 mmol/L (21-32) Anion Gap 11 (6-14) Blood Urea Nitrogen 12 mg/dL (8-26) Creatinine 0.8 mg/dL (0.7-1.3) Estimated GFR (Cockcroft-Gault) 117.8 BUN/Creatinine Ratio 15 (6-20) Glucose Level 120 mg/dL (70-99) Calcium Level 9.3 mg/dL (8.5-10.1) Total Bilirubin 0.5 mg/dL (0.2-1.0) Aspartate Amino Transf (AST/SGOT) 75 U/L (15-37) Alanine Aminotransferase (ALT/SGPT) 140 U/L (16-63) Alkaline Phosphatase 87 U/L (46-116) Total Protein 8.1 g/dL (6.4-8.2) Albumin 3.5 g/dL (3.4-5.0) Albumin/Globulin Ratio 0.8 (1.0-1.7) Assessment and Plan Assessmemt and Plan Problems Medical Problems: (1) Pneumonia due to COVID-19 virus Status: Acute (2) Respiratory failure Status: Acute Comment Review of Relevant I have reviewed the following items sergei (where applicable) has been applied. Labs Laboratory Tests Test 03/05/20 18:00 03/06/20 08:50 White Blood Count 7.2 x10^3/uL (4.0-11.0) Red Blood Count 4.90 x10^6/uL (4.30-5.70) Hemoglobin 14.3 g/dL (13.0-17.5) Hematocrit 41.3 % (39.0-53.0) Mean Corpuscular Volume 84 fL (79-100) Mean Corpuscular Hemoglobin 29 pg (25-35) Mean Corpuscular Hemoglobin Concent 35 g/dL (31-37) Red Cell Distribution Width 13.6 % (11.5-14.5) Platelet Count 266 x10^3/uL (140-400) Neutrophils (%) (Auto) 66 % (31-73) Lymphocytes (%) (Auto) 21 % (24-48) Monocytes (%) (Auto) 12 % (0-9) Eosinophils (%) (Auto) 0 % (0-3) Basophils (%) (Auto) 1 % (0-3) Neutrophils # (Auto) 4.7 x10^3/uL (1.8-7.7) Lymphocytes # (Auto) 1.5 x10^3/uL (1.0-4.8) Monocytes # (Auto) 0.9 x10^3/uL (0.0-1.1) Eosinophils # (Auto) 0.0 x10^3/uL (0.0-0.7) Basophils # (Auto) 0.1 x10^3/uL (0.0-0.2) Sodium Level 137 mmol/L (136-145) 141 mmol/L (136-145) Potassium Level 3.5 mmol/L (3.5-5.1) 4.1 mmol/L (3.5-5.1) Chloride Level 100 mmol/L (98-107) 103 mmol/L (98-107) Carbon Dioxide Level 28 mmol/L (21-32) 27 mmol/L (21-32) Anion Gap 9 (6-14) 11 (6-14) Blood Urea Nitrogen 9 mg/dL (8-26) 12 mg/dL (8-26) Creatinine 1.0 mg/dL (0.7-1.3) 0.8 mg/dL (0.7-1.3) Estimated GFR (Cockcroft-Gault) 91.0 117.8 BUN/Creatinine Ratio 9 (6-20) 15 (6-20) Glucose Level 103 mg/dL (70-99) 120 mg/dL (70-99) Lactic Acid Level 0.7 mmol/L (0.4-2.0) Calcium Level 8.5 mg/dL (8.5-10.1) 9.3 mg/dL (8.5-10.1) Total Bilirubin 0.6 mg/dL (0.2-1.0) 0.5 mg/dL (0.2-1.0) Aspartate Amino Transf (AST/SGOT) 75 U/L (15-37) 75 U/L (15-37) Alanine Aminotransferase (ALT/SGPT) 121 U/L (16-63) 140 U/L (16-63) Alkaline Phosphatase 82 U/L (46-116) 87 U/L (46-116) Total Protein 7.4 g/dL (6.4-8.2) 8.1 g/dL (6.4-8.2) Albumin 3.4 g/dL (3.4-5.0) 3.5 g/dL (3.4-5.0) Albumin/Globulin Ratio 0.9 (1.0-1.7) 0.8 (1.0-1.7) Influenza Type A Antigen Negative (NEGATIVE) Influenza Type B Antigen Negative (NEGATIVE) Laboratory Tests Test 03/06/20 08:50 Sodium Level 141 mmol/L (136-145) Potassium Level 4.1 mmol/L (3.5-5.1) Chloride Level 103 mmol/L (98-107) Carbon Dioxide Level 27 mmol/L (21-32) Anion Gap 11 (6-14) Blood Urea Nitrogen 12 mg/dL (8-26) Creatinine 0.8 mg/dL (0.7-1.3) Estimated GFR (Cockcroft-Gault) 117.8 BUN/Creatinine Ratio 15 (6-20) Glucose Level 120 mg/dL (70-99) Calcium Level 9.3 mg/dL (8.5-10.1) Total Bilirubin 0.5 mg/dL (0.2-1.0) Aspartate Amino Transf (AST/SGOT) 75 U/L (15-37) Alanine Aminotransferase (ALT/SGPT) 140 U/L (16-63) Alkaline Phosphatase 87 U/L (46-116) Total Protein 8.1 g/dL (6.4-8.2) Albumin 3.5 g/dL (3.4-5.0) Albumin/Globulin Ratio 0.8 (1.0-1.7) Microbiology 03/05/20 Blood Culture - Preliminary, Resulted NO GROWTH AFTER 1 DAY Medications Current Medications Sodium Chloride 1,000 ml @ 1,000 mls/hr 1X ONCE IV Last administered on 03/05/20at 18:15; Start 03/05/20 at 17:30; Stop 03/05/20 at 18:29; Status DC Acetaminophen (Tylenol) 1,000 mg 1X ONCE PO Last administered on 03/05/20at 18:16; Start 03/05/20 at 17:30; Stop 03/05/20 at 17:31; Status DC Dexamethasone Sodium Phosphate (Decadron) 10 mg 1X ONCE IVP Last administered on 03/05/20at 18:17; Start 03/05/20 at 18:00; Stop 03/05/20 at 18:01; Status DC Ceftriaxone Sodium (Rocephin) 1 gm 1X ONCE IVP Last administered on 03/05/20at 18:00; Start 03/05/20 at 18:00; Stop 03/05/20 at 18:01; Status DC Doxycycline Hyclate 100 mg/ Dextrose 100 ml @ 50 mls/hr 1X ONCE IV Last administered on 03/05/20at 18:15; Start 03/05/20 at 18:00; Stop 03/05/20 at 19:59; Status DC Ondansetron HCl (Zofran) 4 mg PRN Q8HRS PRN IV NAUSEA/VOMITING Last administered on 03/05/20at 18:16; Start 03/05/20 at 18:00; Stop 03/05/20 at 19:16; Status DC Ondansetron HCl (Zofran) 4 mg PRN Q4HRS PRN IV NAUSEA/VOMITING; Start 03/05/20 at 19:15 Enoxaparin Sodium (Lovenox 40mg Syringe) 40 mg Q24H SQ Last administered on 03/06/20at 20:40; Start 03/05/20 at 21:00 Zinc Sulfate (Orazinc) 220 mg DAILY PO Last administered on 03/06/20at 08:08; Start 03/05/20 at 19:30 Thiamine Mononitrate (Vitamin B-1) 100 mg DAILY PO Last administered on 03/06/20at 08:08; Start 03/05/20 at 19:30 Guaifenesin (Robitussin Dm) 10 ml PRN Q6HRS PRN PO COUGH; Start 03/05/20 at 19:15 Loperamide HCl (Imodium) 2 mg PRN Q15MIN PRN PO DIARRHEA; Start 03/05/20 at 19:15 Acetaminophen (Tylenol) 650 mg PRN Q6HRS PRN PO MILD PAIN / TEMP > 100.3'F; Start 03/05/20 at 19:15 Ceftriaxone Sodium (Rocephin) 1 gm Q24H IVP Last administered on 03/06/20at 10:09; Start 03/06/20 at 10:00 Azithromycin 500 mg/Sodium Chloride 250 ml @ 250 mls/hr Q24H IV Last administered on 03/06/20at 10:08; Start 03/06/20 at 10:00 Dexamethasone (Decadron) 4 mg [id number] PO Last administered on 03/06/20at 08:08; Start 03/06/20 at 08:00 Lactobacillus Rhamnosus (Culturelle) 1 cap BID PO Last administered on 03/06/20at 20:40; Start 03/06/20 at 11:00 Active Scripts Active Prednisone 20 Mg Tablet 60 Mg PO DAILY f/u with DR. Albright for tapering schedule Tylenol (Acetaminophen) 325 Mg Tablet 650 Mg PO PRN Q6HRS PRN Reported Protonix (Pantoprazole Sodium) 40 Mg Granpkt.dr 40 Mg PO DAILY Vitals/I & O Vital Sign - Last 24 Hours 03/06/20 03/06/20 03/06/20 03/06/20 07:00 08:14 11:00 14:50 Temp 97.3 98.1 97.5 97.3 98.1 97.5 Pulse 75 98 100 Resp 20 18 18 B/P (MAP) 143/80 (101) 124/71 (88) 107/55 (72) Pulse Ox 96 93 91 O2 Delivery Nasal Cannula Nasal Cannula Room Air Room Air O2 Flow Rate 2.0 2.0 03/06/20 03/06/20 03/06/20 03/07/20 19:00 20:00 23:00 03:00 Temp 96.8 98.1 99.2 96.8 98.1 99.2 Pulse 94 98 99 Resp 20 24 20 B/P (MAP) 117/71 (86) 124/73 (90) 121/78 (92) Pulse Ox 92 93 92 O2 Delivery Room Air Nasal Cannula Room Air Room Air O2 Flow Rate 2.0 Intake and Output 03/06/20 03/06/20 03/07/20 15:00 23:00 07:00 Intake Total 340 ml 360 ml 1050 ml Output Total 800 ml 800 ml 800 ml Balance -460 ml -440 ml 250 ml Justicifation of Admission Dx: Justifications for Admission: Justification of Admission Dx: Yes Comminuty Aquired Pneumonia: Hypoxemia JUAQUIN ARTEAGA MD Mar 07, 2020 06:48
[2020-03-07 07:00] VITALS: BP 119/70
--- NOTE | 2020-03-07 08:56 | PDOC ---
PULMONARY PROGRESS NOTES DATE: 03/07/20 TIME: 08:53 Subjective Patient is now on 2 L nasal cannula with some intermittent hypoxia especially on exertion Shortness of breath with exertion and a nonproductive cough Afebrile overnight Vitals Vital Signs Date Time Temp Pulse Resp B/P (MAP) Pulse Ox O2 Delivery O2 Flow Rate FiO2 03/07/20 07:00 98.2 87 17 119/70 (86) 94 Nasal Cannula 2.0 98.2 Comments Patient is seen during ID- pandemic, visual exam performed No respiratory distress No accessory muscle use No edema/rash Regular rate and rhythm On nasal cannula oxygen Lungs: Crackles Labs Laboratory Tests Test 03/05/20 18:00 03/06/20 08:50 White Blood Count 7.2 x10^3/uL (4.0-11.0) Red Blood Count 4.90 x10^6/uL (4.30-5.70) Hemoglobin 14.3 g/dL (13.0-17.5) Hematocrit 41.3 % (39.0-53.0) Mean Corpuscular Volume 84 fL (79-100) Mean Corpuscular Hemoglobin 29 pg (25-35) Mean Corpuscular Hemoglobin Concent 35 g/dL (31-37) Red Cell Distribution Width 13.6 % (11.5-14.5) Platelet Count 266 x10^3/uL (140-400) Neutrophils (%) (Auto) 66 % (31-73) Lymphocytes (%) (Auto) 21 % (24-48) Monocytes (%) (Auto) 12 % (0-9) Eosinophils (%) (Auto) 0 % (0-3) Basophils (%) (Auto) 1 % (0-3) Neutrophils # (Auto) 4.7 x10^3/uL (1.8-7.7) Lymphocytes # (Auto) 1.5 x10^3/uL (1.0-4.8) Monocytes # (Auto) 0.9 x10^3/uL (0.0-1.1) Eosinophils # (Auto) 0.0 x10^3/uL (0.0-0.7) Basophils # (Auto) 0.1 x10^3/uL (0.0-0.2) Sodium Level 137 mmol/L (136-145) 141 mmol/L (136-145) Potassium Level 3.5 mmol/L (3.5-5.1) 4.1 mmol/L (3.5-5.1) Chloride Level 100 mmol/L (98-107) 103 mmol/L (98-107) Carbon Dioxide Level 28 mmol/L (21-32) 27 mmol/L (21-32) Anion Gap 9 (6-14) 11 (6-14) Blood Urea Nitrogen 9 mg/dL (8-26) 12 mg/dL (8-26) Creatinine 1.0 mg/dL (0.7-1.3) 0.8 mg/dL (0.7-1.3) Estimated GFR (Cockcroft-Gault) 91.0 117.8 BUN/Creatinine Ratio 9 (6-20) 15 (6-20) Glucose Level 103 mg/dL (70-99) 120 mg/dL (70-99) Lactic Acid Level 0.7 mmol/L (0.4-2.0) Calcium Level 8.5 mg/dL (8.5-10.1) 9.3 mg/dL (8.5-10.1) Total Bilirubin 0.6 mg/dL (0.2-1.0) 0.5 mg/dL (0.2-1.0) Aspartate Amino Transf (AST/SGOT) 75 U/L (15-37) 75 U/L (15-37) Alanine Aminotransferase (ALT/SGPT) 121 U/L (16-63) 140 U/L (16-63) Alkaline Phosphatase 82 U/L (46-116) 87 U/L (46-116) Total Protein 7.4 g/dL (6.4-8.2) 8.1 g/dL (6.4-8.2) Albumin 3.4 g/dL (3.4-5.0) 3.5 g/dL (3.4-5.0) Albumin/Globulin Ratio 0.9 (1.0-1.7) 0.8 (1.0-1.7) Influenza Type A Antigen Negative (NEGATIVE) Influenza Type B Antigen Negative (NEGATIVE) Medications Active Scripts Medications Dose Route/Sig Max Daily Dose Days Date Category Dose Instructions Prednisone 20 Mg Tablet 60 Mg PO DAILY 04/01/17 Rx f/u with DR. Albright for tapering schedule Tylenol (Acetaminophen) 325 Mg Tablet 650 Mg PO PRN Q6HRS PRN 04/01/17 Rx Protonix (Pantoprazole Sodium) 40 Mg Granpkt.dr 40 Mg PO DAILY 03/30/17 Reported Comments CXR IMPRESSION: * Hypoexpanded exam with patchy opacities bilaterally which could be secondary to bilateral infiltrate. Impression . IMPRESSION: 1. Dyspnea with acute hypoxic respiratory failure, present on admission due to COVID-19 pneumonia. Clinically improving now currently on room air. 2. Abnormal chest x-ray with mild perihilar infiltrates suggestive of viral pneumonia. 3. History of asthma, under control. Plan . RECOMMENDATIONS: Continue supplemental oxygen to keep oxygen saturations greater than 92%, currently on 2 L nasal cannula Continue dexamethasone for a full 10-day course with a slow taper Continue empiric antibiotic coverage with Rocephin and azithromycin Will initiate remdesivir today Incentive spirometry, encourage use DVT/GI prophylaxis CLINT FLORES MD Mar 07, 2020 08:56
[2020-03-07] MEDS: DEXAMETHASONE 4 MG TABLET PO SCH (09:03)
[2020-03-07] MEDS: THIAMINE 100 MG TABLET. PO SCH (09:03)
[2020-03-07] MEDS: ZINC SULFATE 220 MG CAPSULE. PO SCH (09:03)
[2020-03-07] MEDS: LACTOBACILLUS RHAMNOSUS GG 1 CAPSULE. PO SCH ×2 (09:03→20:45)
[2020-03-07] MEDS: cefTRIAXone IV Push 1 GM VIAL. IVP SCH (09:04)
[2020-03-07] MEDS: AZITHROMYCIN 500 MG in IV NORMAL SALINE 250ML 250 ML IV SCH (09:04)
[2020-03-07 11:00] VITALS: BP 118/65
[2020-03-07] MEDS ORDERED: REMDESIVIR LOAD in IV NORMAL SALINE 250ML TV IV ONE (11:00)
[2020-03-07 15:00] VITALS: BP 117/68
--- NOTE | 2020-03-07 15:40 | NUR ---
SW following for discharge planning. Spoke with RN and reviewed chart. Pt remains on IV abx and 2l 02. Pt started on IV Remdesivir today and will be on it until 03/11. Possible 6 min walk needed prior to discharge. Discharge plan is home with family, self-care. SW following.
[2020-03-07 19:00] VITALS: BP 120/71
[2020-03-07] MEDS: ENOXAPARIN 40 MG/0.4 ML SYRINGE. SQ SCH (20:45)
[2020-03-07 22:54] VITALS: BP 123/70
[2020-03-08 04:00] VITALS: BP 116/68
[2020-03-08 07:00] VITALS: BP 112/67
--- NOTE | 2020-03-08 08:41 | PDOC ---
PROGRESS NOTES Date of Service: DATE: 03/08/20 TIME: 08:41 Chief Complaint Chief Complaint IMPRESSION Assessment/Plan A/P: Pneumonia - due to COVID 19, likely developing a secondary bacterial community acquired pneumonia as well. Given doxycycline and rocephin empirically. Will continue Acute HYPOXIC respiratory failure - hypoxic with movement in ED, good O2 saturations when sitting still, therefore given steroid therapy. Will continue to monitor O2 status to guide further therapy, PULMONARY CONSULTED COVID 19 - positive 9 days prior to presentation, with mild O2 desaturations and apparent improvement with steroids will continue supportive care, steroids and monitor for need for further treatments such as remdesivir Asthma - mild intermittent by history Diarrhea - likely related to COVID 19 Transaminitis - likely covid related, will monitor FEN - General diet PPX - Lovenox FULL CODE dispo - inpatient for above O2 SUPPORT START REMDESIVIR 5 DAY RX D/W DR FLORES, AND RN D/W DR FLORES, NEEDS ANOTHER DAY, NOW ON 2 LITERS NC Justifications for Admission Justifications for Admission Other Justification, HYPOXIA History of Present Illness History of Present Illness Identification/Chief Complaint Chief Complaint Shortness of breath Source Source: Patient History of Present Illness History of Present Illness Mr Negrete is a 24yo M w/ PMHx GERD, asthma, obesity who presents to ED on 03/05/20 c/o progressive shortness of breath with cough, weakness, loss of appetite, and diarrhea. This has been progressing for the past 5 days and worsening. He initially felt ill on 02/25/20 and was tested positive for COVID 19 at urgent care. 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 Now feeling feverish and too weak to care for himself or feed himself. In ED he is breathing 22 times per minute with HR 124 with O2 saturations 90%. When asked to move he does desaturate to 87%, improves to 90% when sitting still. Chest radiograph shows patchy opacities bilateral that appear to be infiltrates. Labs with lymphopenia, AST 75, ALT 121. Given empiric rocephin, doxycycline, steroids Admitted for further care. Past Medical History Cardiovascular: No pertinent hx Pulmonary: Asthma GI: Other Heme/Onc: No pertinent hx Hepatobiliary: No pertinent hx Psych: No pertinent hx Rheumatologic: No pertinent hx Infectious disease: No pertinent hx Renal/: No pertinent hx Endocrine: No pertinent hx Past Surgical History Past Surgical History: No pertinent history Family History Family History: High Cholestrol, Hypertension Social History Smoke: <1 pack per day ALCOHOL: social Drugs: None Current Medications 1-25 MORE HYPOXIC WITH ACTIVITY D/W DR FLORES IN [place] keep another day Vitals Vitals Vital Signs Date Time Temp Pulse Resp B/P (MAP) Pulse Ox O2 Delivery O2 Flow Rate FiO2 03/08/20 07:00 97.1 84 18 112/67 (82) 93 Nasal Cannula 2.0 97.1 Physical Exam General: Alert, Oriented X3, Cooperative, mild distress Heart: Regular rate, Normal S1, Normal S2 Lungs: Crackles Abdomen: Normal bowel sounds, Soft, No tenderness Extremities: No clubbing, No cyanosis Skin: No rashes Assessment and Plan Assessmemt and Plan Problems Medical Problems: (1) Pneumonia due to COVID-19 virus Status: Acute (2) Respiratory failure Status: Acute Comment Review of Relevant I have reviewed the following items sergei (where applicable) has been applied. Labs Laboratory Tests Test 03/06/20 08:50 Sodium Level 141 mmol/L (136-145) Potassium Level 4.1 mmol/L (3.5-5.1) Chloride Level 103 mmol/L (98-107) Carbon Dioxide Level 27 mmol/L (21-32) Anion Gap 11 (6-14) Blood Urea Nitrogen 12 mg/dL (8-26) Creatinine 0.8 mg/dL (0.7-1.3) Estimated GFR (Cockcroft-Gault) 117.8 BUN/Creatinine Ratio 15 (6-20) Glucose Level 120 mg/dL (70-99) Calcium Level 9.3 mg/dL (8.5-10.1) Total Bilirubin 0.5 mg/dL (0.2-1.0) Aspartate Amino Transf (AST/SGOT) 75 U/L (15-37) Alanine Aminotransferase (ALT/SGPT) 140 U/L (16-63) Alkaline Phosphatase 87 U/L (46-116) Total Protein 8.1 g/dL (6.4-8.2) Albumin 3.5 g/dL (3.4-5.0) Albumin/Globulin Ratio 0.8 (1.0-1.7) Microbiology 03/05/20 Blood Culture - Preliminary, Resulted NO GROWTH AFTER 2 DAYS Medications Current Medications Sodium Chloride 1,000 ml @ 1,000 mls/hr 1X ONCE IV Last administered on 03/05/20at 18:15; Start 03/05/20 at 17:30; Stop 03/05/20 at 18:29; Status DC Acetaminophen (Tylenol) 1,000 mg 1X ONCE PO Last administered on 03/05/20at 18:16; Start 03/05/20 at 17:30; Stop 03/05/20 at 17:31; Status DC Dexamethasone Sodium Phosphate (Decadron) 10 mg 1X ONCE IVP Last administered on 03/05/20at 18:17; Start 03/05/20 at 18:00; Stop 03/05/20 at 18:01; Status DC Ceftriaxone Sodium (Rocephin) 1 gm 1X ONCE IVP Last administered on 03/05/20at 18:00; Start 03/05/20 at 18:00; Stop 03/05/20 at 18:01; Status DC Doxycycline Hyclate 100 mg/ Dextrose 100 ml @ 50 mls/hr 1X ONCE IV Last administered on 03/05/20at 18:15; Start 03/05/20 at 18:00; Stop 03/05/20 at 19:59; Status DC Ondansetron HCl (Zofran) 4 mg PRN Q8HRS PRN IV NAUSEA/VOMITING Last administered on 03/05/20at 18:16; Start 03/05/20 at 18:00; Stop 03/05/20 at 19:16; Status DC Ondansetron HCl (Zofran) 4 mg PRN Q4HRS PRN IV NAUSEA/VOMITING; Start 03/05/20 at 19:15 Enoxaparin Sodium (Lovenox 40mg Syringe) 40 mg Q24H SQ Last administered on 03/06/20at 20:40; Start 03/05/20 at 21:00; Stop 03/07/20 at 15:34; Status DC Zinc Sulfate (Orazinc) 220 mg DAILY PO Last administered on 03/07/20at 09:03; Start 03/05/20 at 19:30 Thiamine Mononitrate (Vitamin B-1) 100 mg DAILY PO Last administered on 03/07/20at 09:03; Start 03/05/20 at 19:30 Guaifenesin (Robitussin Dm) 10 ml PRN Q6HRS PRN PO COUGH; Start 03/05/20 at 19:15 Loperamide HCl (Imodium) 2 mg PRN Q15MIN PRN PO DIARRHEA; Start 03/05/20 at 19:15 Acetaminophen (Tylenol) 650 mg PRN Q6HRS PRN PO MILD PAIN / TEMP > 100.3'F; Start 03/05/20 at 19:15 Ceftriaxone Sodium (Rocephin) 1 gm Q24H IVP Last administered on 03/07/20at 09:04; Start 03/06/20 at 10:00 Azithromycin 500 mg/Sodium Chloride 250 ml @ 250 mls/hr Q24H IV Last administered on 03/07/20at 09:04; Start 03/06/20 at 10:00 Dexamethasone (Decadron) 4 mg DAILYWBKFT PO Last administered on 03/07/20at 09:03; Start 03/06/20 at 08:00 Lactobacillus Rhamnosus (Culturelle) 1 cap BID PO Last administered on 03/07/20at 20:45; Start 03/06/20 at 11:00 Remdesivir 200 mg/ Sodium Chloride 210 ml @ 210 mls/hr 1X ONCE IV Last administered on 03/07/20at 11:29; Start 03/07/20 at 11:00; Stop 03/07/20 at 11:59; Status DC Remdesivir 100 mg/ Sodium Chloride 230 ml @ 460 mls/hr Q24H IV ; Start 03/08/20 at 11:00; Stop 03/11/20 at 11:29 Enoxaparin Sodium (Lovenox 40mg Syringe) 40 mg BID SQ Last administered on 03/07/20at 20:45; Start 03/07/20 at 21:00 Active Scripts Active Prednisone 20 Mg Tablet 60 Mg PO DAILY f/u with DR. Albright for tapering schedule Tylenol (Acetaminophen) 325 Mg Tablet 650 Mg PO PRN Q6HRS PRN Reported Protonix (Pantoprazole Sodium) 40 Mg Granpkt.dr 40 Mg PO DAILY Vitals/I & O Vital Sign - Last 24 Hours 03/07/20 03/07/20 03/07/20 03/07/20 11:00 15:00 19:00 20:00 Temp 96.2 96.5 97.4 96.2 96.5 97.4 Pulse 89 83 73 Resp 17 17 18 B/P (MAP) 118/65 (82) 117/68 (84) 120/71 (87) Pulse Ox 94 94 95 O2 Delivery Nasal Cannula Room Air Nasal Cannula Nasal Cannula O2 Flow Rate 2.0 2.0 2.0 03/07/20 03/08/20 03/08/20 22:54 04:00 07:00 Temp 97.8 96.0 97.1 97.8 96.0 97.1 Pulse 93 51 84 Resp 18 18 18 B/P (MAP) 123/70 (87) 116/68 (84) 112/67 (82) Pulse Ox 96 95 93 O2 Delivery Nasal Cannula Nasal Cannula Nasal Cannula O2 Flow Rate 2.0 2.0 2.0 Intake and Output 03/07/20 03/07/20 03/08/20 15:00 23:00 07:00 Intake Total 600 ml 760 ml Output Total 601 ml Balance 600 ml 159 ml Justicifation of Admission Dx: Justifications for Admission: Justification of Admission Dx: Yes Comminuty Aquired Pneumonia: Hypoxemia JUAQUIN ARTEAGA MD Mar 08, 2020 08:41
[2020-03-08] MEDS: ENOXAPARIN 40 MG/0.4 ML SYRINGE. SQ SCH ×2 (09:43→21:09)
[2020-03-08] MEDS: LACTOBACILLUS RHAMNOSUS GG 1 CAPSULE. PO SCH ×2 (09:43→21:09)
[2020-03-08] MEDS: ZINC SULFATE 220 MG CAPSULE. PO SCH (09:43)
[2020-03-08] MEDS: DEXAMETHASONE 4 MG TABLET PO SCH (09:43)
[2020-03-08] MEDS: THIAMINE 100 MG TABLET. PO SCH (09:43)
[2020-03-08] MEDS: AZITHROMYCIN 500 MG in IV NORMAL SALINE 250ML 250 ML IV SCH (09:46)
[2020-03-08] MEDS: cefTRIAXone IV Push 1 GM VIAL. IVP SCH (09:46)
[2020-03-08 11:00] VITALS: BP 125/76
[2020-03-08] MEDS: REMDESIVIR 100mg in NORMAL SALINE 250ML X 4 DAYS IV SCH (11:29)
--- NOTE | 2020-03-08 12:03 | PDOC ---
PULMONARY PROGRESS NOTES DATE: 03/08/20 TIME: 12:02 Subjective Patient is now on 2 L nasal cannula Reports he is feeling better, no shortness of breath no increased cough Afebrile overnight Vitals Vital Signs Date Time Temp Pulse Resp B/P (MAP) Pulse Ox O2 Delivery O2 Flow Rate FiO2 03/08/20 11:00 96.6 82 18 125/76 (92) 95 Room Air 96.6 03/08/20 08:00 2.0 Comments Patient is seen during COVID-19 pandemic, visual exam performed No respiratory distress No accessory muscle use No edema/rash Regular rate and rhythm On nasal cannula oxygen Lungs: Crackles Medications Active Scripts Medications Dose Route/Sig Max Daily Dose Days Date Category Dose Instructions Prednisone 20 Mg Tablet 60 Mg PO DAILY 04/01/17 Rx f/u with DR. Albright for tapering schedule Tylenol (Acetaminophen) 325 Mg Tablet 650 Mg PO PRN Q6HRS PRN 04/01/17 Rx Protonix (Pantoprazole Sodium) 40 Mg Granpkt.dr 40 Mg PO DAILY 03/30/17 Reported Comments CXR IMPRESSION: * Hypoexpanded exam with patchy opacities bilaterally which could be secondary to bilateral infiltrate. Impression . IMPRESSION: 1. Dyspnea with acute hypoxic respiratory failure, present on admission due to COVID-19 pneumonia. 2. Abnormal chest x-ray with mild perihilar infiltrates suggestive of viral pneumonia. 3. History of asthma, under control. Plan . RECOMMENDATIONS: Continue supplemental oxygen to keep oxygen saturations greater than 92%, currently on 2 L nasal cannula Continue dexamethasone for a full 10-day course with a slow taper Continue empiric antibiotic coverage with Rocephin and azithromycin Continue remdesivir Incentive spirometry, encourage use 6-minute walk in the morning could possibly discharge on home oxygen DVT/GI prophylaxis Discussed with CLINT LEON MD Mar 08, 2020 12:03
[2020-03-08 15:00] VITALS: BP 123/81
--- NOTE | 2020-03-08 15:14 | NUR ---
SW following for discharge planning. Spoke with RN and reviewed chart. Pt remains on IV abx and 2l 02. 6 min walk ordered. Spoke with pt who stated discharge plan remains home, self-care. SW following.
[2020-03-08 19:00] VITALS: BP 138/76
[2020-03-08 23:24] VITALS: BP 122/62
[2020-03-09 03:35] VITALS: BP 114/74
[2020-03-09 07:00] VITALS: BP 117/72
[2020-03-09] MEDS: DEXAMETHASONE 4 MG TABLET PO SCH (08:14)
--- NOTE | 2020-03-09 09:05 | PDOC ---
PULMONARY PROGRESS NOTES DATE: 03/09/20 TIME: 09:03 Subjective Patient is now onroom air Reports he is feeling better, no shortness of breath no increased cough Afebrile overnight ready to D/C home Vitals Vital Signs Date Time Temp Pulse Resp B/P (MAP) Pulse Ox O2 Delivery O2 Flow Rate FiO2 03/09/20 08:27 Room Air 03/09/20 07:00 97.2 95 18 117/72 (87) 97 97.2 03/08/20 08:00 2.0 Comments Patient is seen during COVID-19 pandemic, visual exam performed No respiratory distress No accessory muscle use No edema/rash Regular rate and rhythm Lungs: Clear Medications Active Scripts Medications Dose Route/Sig Max Daily Dose Days Date Category Dose Instructions Prednisone 20 Mg Tablet 60 Mg PO DAILY 04/01/17 Rx f/u with DR. Albright for tapering schedule Tylenol (Acetaminophen) 325 Mg Tablet 650 Mg PO PRN Q6HRS PRN 04/01/17 Rx Protonix (Pantoprazole Sodium) 40 Mg Granpkt.dr 40 Mg PO DAILY 03/30/17 Reported Comments CXR IMPRESSION: * Hypoexpanded exam with patchy opacities bilaterally which could be secondary to bilateral infiltrate. Impression . IMPRESSION: 1. Dyspnea with acute hypoxic respiratory failure, present on admission due to COVID-19 pneumonia. --resolved 2. Abnormal chest x-ray with mild perihilar infiltrates suggestive of viral pneumonia. 3. History of asthma, under control. Plan . RECOMMENDATIONS: Continue supplemental oxygen to keep oxygen saturations greater than 92%, now on room air Continue dexamethasone for a full 10-day course D/C rocephin and complete full 5 day course of azithro, changed to po Incentive spirometry, encourage use 6-minute walk completed, does not need home oxygen DVT/GI prophylaxis Discussed with RN OK to D/C home, we will see PRN if doesn't D/C home today Thank you call with any questions CLINT FLORES MD Mar 09, 2020 09:05
[2020-03-09] MEDS: ZINC SULFATE 220 MG CAPSULE. PO SCH (09:06)
[2020-03-09] MEDS: LACTOBACILLUS RHAMNOSUS GG 1 CAPSULE. PO SCH (09:06)
[2020-03-09] MEDS: THIAMINE 100 MG TABLET. PO SCH (09:06)
[2020-03-09] MEDS: ENOXAPARIN 40 MG/0.4 ML SYRINGE. SQ SCH (09:18)
[2020-03-09] MEDS ORDERED: AZITHROMYCIN 250 MG TABLET. PO SCH (10:00)
[2020-03-09] MEDS: REMDESIVIR 100mg in NORMAL SALINE 250ML X 4 DAYS IV SCH (10:56)
[2020-03-09 11:48] VITALS: BP 131/80
--- NOTE | 2020-03-09 12:23 | PDOC ---
PROGRESS NOTES Date of Service: DATE: 03/09/20 TIME: 12:23 Chief Complaint Chief Complaint ====HOSPITAL D/C SUMMARY DATE OF ADMIT DATE OF D/C 03-09-20 COMPLICATIONS NONE CONSULTS PULMONARY D/C CONDITION GOOD PROGNOSIS IS EXCELLENT DISCHAGRE DX Assessment/Plan A/P: Pneumonia - due to COVID 19, likely developing a secondary bacterial community acquired pneumonia as well. Given doxycycline and rocephin empirically. CHG TO 5 DAYS ZITHROMAX Acute HYPOXIC respiratory failure - hypoxic with movement in ED, good O2 saturations when sitting still, therefore given steroid therapy. Will continue to monitor O2 status to guide further therapy, PULMONARY CONSULTED OK WITH D/C 03-09 COVID 19 - positive 9 days prior to presentation, with mild O2 desaturations and apparent improvement with steroids will continue supportive care, steroids and monitor for need for further treatments such as remdesivir Asthma - mild intermittent by history Diarrhea - likely related to COVID 19 Transaminitis - likely covid related, will monitor PLAN FEN - General diet PPX - Lovenox FULL CODE dispo - inpatient for above O2 SUPPORT START REMDESIVIR 5 DAY RX D/W DR FLORES, AND RN Continue supplemental oxygen to keep oxygen saturations greater than 92%, now on room air Continue dexamethasone for a full 10-day course D/C rocephin and complete full 5 day course of azithro, changed to po Incentive spirometry, encourage use 6-minute walk completed, does not need home oxygen D/C PLANNING 37 MIN Justifications for Admission Justifications for Admission Other Justification, HYPOXIA History of Present Illness History of Present Illness Identification/Chief Complaint Chief Complaint Shortness of breath Source Source: Patient History of Present Illness History of Present Illness Mr Negrete is a 24yo M w/ PMHx GERD, asthma, obesity who presents to ED on 03/05/20 c/o progressive shortness of breath with cough, weakness, loss of appetite, and diarrhea. This has been progressing for the past 5 days and worsening. He initially felt ill on 02/25/20 and was tested positive for COVID 19 at urgent care. 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 Now feeling feverish and too weak to care for himself or feed himself. In ED he is breathing 22 times per minute with HR 124 with O2 saturations 90%. When asked to move he does desaturate to 87%, improves to 90% when sitting still. Chest radiograph shows patchy opacities bilateral that appear to be infiltrates. Labs with lymphopenia, AST 75, ALT 121. Given empiric rocephin, doxycycline, steroids Admitted for further care. Past Medical History Cardiovascular: No pertinent hx Pulmonary: Asthma GI: Other Heme/Onc: No pertinent hx Hepatobiliary: No pertinent hx Psych: No pertinent hx Rheumatologic: No pertinent hx Infectious disease: No pertinent hx Renal/: No pertinent hx Endocrine: No pertinent hx Past Surgical History Past Surgical History: No pertinent history Family History Family History: High Cholestrol, Hypertension Social History Smoke: <1 pack per day ALCOHOL: social Drugs: None Current Medications 1-25 MORE HYPOXIC WITH ACTIVITY D/W DR FLORES IN [place] keep another day Vitals Vitals Vital Signs Date Time Temp Pulse Resp B/P (MAP) Pulse Ox O2 Delivery O2 Flow Rate FiO2 03/09/20 11:48 97.1 99 18 131/80 (97) 98 Room Air 97.1 03/08/20 08:00 2.0 Physical Exam General: Alert, Oriented X3, Cooperative, No acute distress Heart: Regular rate, Normal S1, Normal S2 Lungs: Clear Abdomen: Normal bowel sounds, Soft, No tenderness Extremities: No clubbing, No cyanosis Skin: No rashes Assessment and Plan Assessmemt and Plan Problems Medical Problems: (1) Pneumonia due to COVID-19 virus Status: Acute (2) Respiratory failure Status: Acute Comment Review of Relevant I have reviewed the following items sergei (where applicable) has been applied. Labs Microbiology 03/05/20 Blood Culture - Preliminary, Resulted NO GROWTH AFTER 3 DAYS Medications Current Medications Sodium Chloride 1,000 ml @ 1,000 mls/hr 1X ONCE IV Last administered on 03/05/20at 18:15; Start 03/05/20 at 17:30; Stop 03/05/20 at 18:29; Status DC Acetaminophen (Tylenol) 1,000 mg 1X ONCE PO Last administered on 03/05/20at 18:16; Start 03/05/20 at 17:30; Stop 03/05/20 at 17:31; Status DC Dexamethasone Sodium Phosphate (Decadron) 10 mg 1X ONCE IVP Last administered on 03/05/20at 18:17; Start 03/05/20 at 18:00; Stop 03/05/20 at 18:01; Status DC Ceftriaxone Sodium (Rocephin) 1 gm 1X ONCE IVP Last administered on 03/05/20at 18:00; Start 03/05/20 at 18:00; Stop 03/05/20 at 18:01; Status DC Doxycycline Hyclate 100 mg/ Dextrose 100 ml @ 50 mls/hr 1X ONCE IV Last administered on 03/05/20at 18:15; Start 03/05/20 at 18:00; Stop 03/05/20 at 19:59; Status DC Ondansetron HCl (Zofran) 4 mg PRN Q8HRS PRN IV NAUSEA/VOMITING Last administered on 03/05/20at 18:16; Start 03/05/20 at 18:00; Stop 03/05/20 at 19:16; Status DC Ondansetron HCl (Zofran) 4 mg PRN Q4HRS PRN IV NAUSEA/VOMITING; Start 03/05/20 at 19:15 Enoxaparin Sodium (Lovenox 40mg Syringe) 40 mg Q24H SQ Last administered on 03/06/20at 20:40; Start 03/05/20 at 21:00; Stop 03/07/20 at 15:34; Status DC Zinc Sulfate (Orazinc) 220 mg DAILY PO Last administered on 03/09/20at 09:06; Start 03/05/20 at 19:30 Thiamine Mononitrate (Vitamin B-1) 100 mg DAILY PO Last administered on 03/09/20at 09:06; Start 03/05/20 at 19:30 Guaifenesin (Robitussin Dm) 10 ml PRN Q6HRS PRN PO COUGH Last administered on 03/08/20at 09:43; Start 03/05/20 at 19:15 Loperamide HCl (Imodium) 2 mg PRN Q15MIN PRN PO DIARRHEA; Start 03/05/20 at 19:15 Acetaminophen (Tylenol) 650 mg PRN Q6HRS PRN PO MILD PAIN / TEMP > 100.3'F; Start 03/05/20 at 19:15 Ceftriaxone Sodium (Rocephin) 1 gm Q24H IVP Last administered on 03/08/20at 09:46; Start 03/06/20 at 10:00; Stop 03/09/20 at 09:03; Status DC Azithromycin 500 mg/Sodium Chloride 250 ml @ 250 mls/hr Q24H IV Last administered on 03/08/20at 09:46; Start 03/06/20 at 10:00; Stop 03/09/20 at 09:03; Status DC Dexamethasone (Decadron) 4 mg DAILYWBKFT PO Last administered on 03/09/20at 08:14; Start 03/06/20 at 08:00 Lactobacillus Rhamnosus (Culturelle) 1 cap BID PO Last administered on 03/09/20at 09:06; Start 03/06/20 at 11:00 Remdesivir 200 mg/ Sodium Chloride 210 ml @ 210 mls/hr 1X ONCE IV Last administered on 03/07/20at 11:29; Start 03/07/20 at 11:00; Stop 03/07/20 at 11:59; Status DC Remdesivir 100 mg/ Sodium Chloride 230 ml @ 460 mls/hr Q24H IV Last a dministered on 03/09/20at 10:56; Start 03/08/20 at 11:00; Stop 03/11/20 at 11:29 Enoxaparin Sodium (Lovenox 40mg Syringe) 40 mg BID SQ Last administered on 03/09/20at 09:18; Start 03/07/20 at 21:00 Azithromycin (Zithromax) 250 mg DAILY PO Last administered on 03/09/20at 10:12; Start 03/09/20 at 10:00; Stop 03/12/20 at 09:59 Active Scripts Active Prednisone 20 Mg Tablet 60 Mg PO DAILY f/u with DR. Albright for tapering schedule Tylenol (Acetaminophen) 325 Mg Tablet 650 Mg PO PRN Q6HRS PRN Reported Protonix (Pantoprazole Sodium) 40 Mg Granpkt.dr 40 Mg PO DAILY Vitals/I & O Vital Sign - Last 24 Hours 03/08/20 03/08/20 03/08/2021 15:00 19:00 20:00 23:24 Temp 96.4 97.4 97.6 96.4 97.4 97.6 Pulse 85 75 67 Resp 18 18 18 B/P (MAP) 123/81 (95) 138/76 (96) 122/62 (82) Pulse Ox 94 97 96 O2 Delivery Room Air Room Air Room Air Room Air 03/09/20 03/09/20 03/09/20 03/09/20 03:35 07:00 08:27 11:48 Temp 97.5 97.2 97.1 97.5 97.2 97.1 Pulse 69 95 99 Resp 18 18 18 B/P (MAP) 114/74 (87) 117/72 (87) 131/80 (97) Pulse Ox 98 97 98 O2 Delivery Room Air Room Air Room Air Room Air Intake and Output 03/08/20 03/08/20 03/09/20 15:00 23:00 07:00 Intake Total 605 ml 400 ml 0 ml Output Total 200 ml Balance 605 ml 200 ml 0 ml Justicifation of Admission Dx: Justifications for Admission: Justification of Admission Dx: Yes Comminuty Aquired Pneumonia: Hypoxemia JUAQUIN ARTEAGA MD Mar 09, 2020 12:23
--- NOTE | 2020-03-09 14:41 | PDOC3 ---
Discharge Summary Date of Admission: Mar 05, 2020 Date of Discharge: Mar 09, 2020 Follow-Up: 3-5 days Admitting Diagnosis comment: ====HOSPITAL D/C SUMMARY DATE OF ADMIT DATE OF D/C 03-09-20 COMPLICATIONS NONE CONSULTS PULMONARY D/C CONDITION GOOD PROGNOSIS IS EXCELLENT DISCHARGE DX SEE PCP IN 3 -7 DAYS, OFF WORK TO [employer] X 10 DAYS ==== Assessment/Plan A/P: Pneumonia - due to COVID 19, likely developing a secondary bacterial community acquired pneumonia as well. Given doxycycline and rocephin empirically. CHG TO 5 DAYS ZITHROMAX Acute HYPOXIC respiratory failure - hypoxic with movement in ED, good O2 saturations when sitting still, therefore given steroid therapy. Will continue to monitor O2 status to guide further therapy, PULMONARY CONSULTED OK WITH D/C 03-09 COVID 19 - positive 9 days prior to presentation, with mild O2 desaturations and apparent improvement with steroids will continue supportive care, steroids and monitor for need for further treatments such as remdesivir Asthma - mild intermittent by history Diarrhea - likely related to COVID 19 Transaminitis - likely covid related, will monitor PLAN FEN - General diet PPX - Lovenox FULL CODE dispo - inpatient for above O2 SUPPORT START REMDESIVIR 5 DAY RX D/W DR FLORES, AND RN Continue supplemental oxygen to keep oxygen saturations greater than 92%, now on room air Continue dexamethasone for a full 10-day course D/C rocephin and complete full 5 day course of azithro, changed to po Incentive spirometry, encourage use 6-minute walk completed, does not need home oxygen D/C PLANNING 37 MIN Justifications for Admission Justifications for Admission Other Justification, HYPOXIA History of Present Illness History of Present Illness Identification/Chief Complaint Chief Complaint Shortness of breath Source Source: Patient History of Present Illness History of Present Illness Mr Negrete is a 24yo M w/ PMHx GERD, asthma, obesity who presents to ED on 03/05/20 c/o progressive shortness of breath with cough, weakness, loss of appetite, and diarrhea. This has been progressing for the past 5 days and worsening. He initially felt ill on 02/25/20 and was tested positive for COVID 19 at urgent care. 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 Now feeling feverish and too weak to care for himself or feed himself. In ED he is breathing 22 times per minute with HR 124 with O2 saturations 90%. When asked to move he does desaturate to 87%, improves to 90% when sitting sti ll. Chest radiograph shows patchy opacities bilateral that appear to be infiltrates. Labs with lymphopenia, AST 75, ALT 121. Given empiric rocephin, doxycycline, steroids Admitted for further care. Past Medical History Cardiovascular: No pertinent hx Pulmonary: Asthma GI: Other Heme/Onc: No pertinent hx Hepatobiliary: No pertinent hx Psych: No pertinent hx Rheumatologic: No pertinent hx Infectious disease: No pertinent hx Renal/: No pertinent hx Endocrine: No pertinent hx Past Surgical History Past Surgical History: No pertinent history Family History Family History: High Cholestrol, Hypertension Social History Smoke: <1 pack per day ALCOHOL: social Drugs: None Current Medications 1-25 MORE HYPOXIC WITH ACTIVITY D/W DR FLORES IN [place] keep another day Vitals Vitals Vital Signs Date Time Temp Pulse Resp B/P (MAP) Pulse Ox O2 Delivery O2 Flow Rate FiO2 03/09/20 11:48 97.1 99 18 131/80 (97) 98 Room Air 97.1 03/08/20 08:00 2.0 Physical Exam General: Alert, Oriented X3, Cooperative, No acute distress Heart: Regular rate, Normal S1, Normal S2 Lungs: Clear Abdomen: Normal bowel sounds, Soft, No tenderness Extremities: No clubbing, No cyanosis Skin: No rashes Assessment and Plan Assessmemt and Plan Problems Medical Problems: (1) Pneumonia due to COVID-19 virus Status: Acute (2) Respiratory failure Status: Acute Comment Review of Relevant I have reviewed the following items sergei (where applicable) has been applied. Labs Microbiology 03/05/20 Blood Culture - Preliminary, Resulted NO GROWTH AFTER 3 DAYS FINAL DIAGNOSIS Problems Medical Problems: (1) Pneumonia due to COVID-19 virus Status: Acute (2) Respiratory failure Status: Acute Brief Hospital Course Mr. Negrete is a 24 old [sex] who presented with [ COVID 19 PNEUMONIA] CONDITION AT DISCHARGE: Improved Discharge Medications Current Medications Sodium Chloride 1,000 ml @ 1,000 mls/hr 1X ONCE IV Last administered on 03/05/20at 18:15; Start 03/05/20 at 17:30; Stop 03/05/20 at 18:29; Status DC Acetaminophen (Tylenol) 1,000 mg 1X ONCE PO Last administered on 03/05/20at 18:16; Start 03/05/20 at 17:30; Stop 03/05/20 at 17:31; Status DC Dexamethasone Sodium Phosphate (Decadron) 10 mg 1X ONCE IVP Last administered on 03/05/20at 18:17; Start 03/05/20 at 18:00; Stop 03/05/20 at 18:01; Status DC Ceftriaxone Sodium (Rocephin) 1 gm 1X ONCE IVP Last administered on 03/05/20at 18:00; Start 03/05/20 at 18:00; Stop 03/05/20 at 18:01; Status DC Doxycycline Hyclate 100 mg/ Dextrose 100 ml @ 50 mls/hr 1X ONCE IV Last administered on 03/05/20at 18:15; Start 03/05/20 at 18:00; Stop 03/05/20 at 19:59; Status DC Ondansetron HCl (Zofran) 4 mg PRN Q8HRS PRN IV NAUSEA/VOMITING Last administered on 03/05/20at 18:16; Start 03/05/20 at 18:00; Stop 03/05/20 at 19:16; Status DC Ondansetron HCl (Zofran) 4 mg PRN Q4HRS PRN IV NAUSEA/VOMITING; Start 03/05/20 at 19:15 Enoxaparin Sodium (Lovenox 40mg Syringe) 40 mg Q24H SQ Last administered on 03/06/20at 20:40; Start 03/05/20 at 21:00; Stop 03/07/20 at 15:34; Status DC Zinc Sulfate (Orazinc) 220 mg DAILY PO Last administered on 03/09/20at 09:06; Start 03/05/20 at 19:30 Thiamine Mononitrate (Vitamin B-1) 100 mg DAILY PO Last administered on 03/09/20at 09:06; Start 03/05/20 at 19:30 Guaifenesin (Robitussin Dm) 10 ml PRN Q6HRS PRN PO COUGH Last administered on 03/08/20at 09:43; Start 03/05/20 at 19:15 Loperamide HCl (Imodium) 2 mg PRN Q15MIN PRN PO DIARRHEA; Start 03/05/20 at 19:15 Acetaminophen (Tylenol) 650 mg PRN Q6HRS PRN PO MILD PAIN / TEMP > 100.3'F; Start 03/05/20 at 19:15 Ceftriaxone Sodium (Rocephin) 1 gm Q24H IVP Last administered on 03/08/20at 09:46; Start 03/06/20 at 10:00; Stop 03/09/20 at 09:03; Status DC Azithromycin 500 mg/Sodium Chloride 250 ml @ 250 mls/hr Q24H IV Last administered on 03/08/20at 09:46; Start 03/06/20 at 10:00; Stop 03/09/20 at 09:03; Status DC Dexamethasone (Decadron) 4 mg [id number] PO Last administered on 03/09/20at 08:14; Start 03/06/20 at 08:00 Lactobacillus Rhamnosus (Culturelle) 1 cap BID PO Last administered on 03/09/20at 09:06; Start 03/06/20 at 11:00 Remdesivir 200 mg/ Sodium Chloride 210 ml @ 210 mls/hr 1X ONCE IV Last administered on 03/07/20at 11:29; Start 03/07/20 at 11:00; Stop 03/07/20 at 11:59; Status DC Remdesivir 100 mg/ Sodium Chloride 230 ml @ 460 mls/hr Q24H IV Last administered on 03/09/20at 10:56; Start 03/08/20 at 11:00; Stop 03/11/20 at 11:29 Enoxaparin Sodium (Lovenox 40mg Syringe) 40 mg BID SQ Last administered on 03/09/20at 09:18; Start 03/07/20 at 21:00 Azithromycin (Zithromax) 250 mg DAILY PO Last administered on 03/09/20at 10:12; Start 03/09/20 at 10:00; Stop 03/12/20 at 09:59 Active Scripts Active Prednisone 20 Mg Tablet 60 Mg PO DAILY f/u with DR. Albright for tapering schedule Tylenol (Acetaminophen) 325 Mg Tablet 650 Mg PO PRN Q6HRS PRN Reported Protonix (Pantoprazole Sodium) 40 Mg Granpkt.dr 40 Mg PO DAILY Vital Signs Vital Signs Date Time Temp Pulse Resp B/P (MAP) Pulse Ox O2 Delivery O2 Flow Rate FiO2 03/09/20 11:48 97.1 99 18 131/80 (97) 98 Room Air 97.1 03/08/20 08:00 2.0 Allergies Allergies Coded Allergies Type Severity Reaction Last Updated Verified Sulfa (Sulfonamide Antibiotics) Allergy Intermediate Swelling 03/31/17 Yes Disposition/Orders: D/C to Home Justicifation of Admission Dx: Justifications for Admission: Justification of Admission Dx: Yes Comminuty Aquired Pneumonia: Hypoxemia JUAQUIN ARTEAGA MD Mar 09, 2020 14:41
[2020-03-09] MEDS ORDERED: DEXA4TAB63 PO (14:43)
[2020-03-09] MEDS ORDERED: GUAI5SYR PO (14:43)
[2020-03-09] MEDS ORDERED: ZINC220C2 PO (14:43)
[2020-03-09] MEDS ORDERED: LACT1CAP19 PO (14:43)
[2020-03-09] MEDS ORDERED: THIA100T22 PO (14:43)
[2020-03-09] MEDS ORDERED: AZIT250T6 PO (14:43)
--- NOTE | 2020-03-09 14:44 | DISCH ---
DISCHARGE INSTRUCTIONS Condition on Discharge Condition on Discharge: Stable Activity After Discharge Activity Instructions for Disc: Activity as tolerated Lifting Instructions after Dis: No heavy lifting, No pulling or pushing Driving Instructions after Dis: Do not drive today Weight Bearing Status after Di: As tolerated Diet after Discharge Diet after Discharge: Regular Checks after Discharge Checks after discharge: Check blood press - daily Contacting the DRIsac after DC Call your doctor for: If your condition worsens Follow-Up Follow up with: PCP IN 3-7 DAYS Treatment/Equipment after DC Adaptive Equipment Issued: None JUAQUIN ARTEAGA MD Mar 09, 2020 14:44
[2020-03-09 15:02] VITALS: BP 123/73
--- NOTE | 2020-03-09 15:59 | NUR ---
Pt left unit at approx 1555 by ambulation via private vehicle with mother. Pt's IV removed with no complications, VSS. Discharge paperwork, including medications and follow-up discussed in depth with pt and additional questions answered. COVID instructions also provided.
--- NOTE | 2020-03-09 17:08 | NUR ---
SW following for discharge planning. Spoke with RN and reviewed chart. Pt discharged home today, 03/09 self-care on room air and oral medications. No further SW needs at this time.
== END 2020-03-09 16:04 | disposition home or self-care (01) | DRG 177 ==
LOC: ER 16:46 → 6 SOUTH 17:57
PROVIDERS: ADMIT Internal Medicine; ATTEND Internal Medicine
PROC: XW033E5 Introduction of Remdesivir Anti-infective into Peripheral Vein, Percutaneous Approach, New Technology Group 5 (ICD-10-PCS; principal; 2020-03-07)
DX: U07.1 COVID-19 (principal); J15.9 Unspecified bacterial pneumonia; J12.82 Pneumonia due to coronavirus disease 2019; J96.01 Acute respiratory failure with hypoxia; J45.909 Unspecified asthma, uncomplicated; F17.210 Nicotine dependence, cigarettes, uncomplicated; K21.9 Gastro-esophageal reflux disease without esophagitis; F17.290 Nicotine dependence, other tobacco product, uncomplicated; D72.810 Lymphocytopenia; Z88.2 Allergy status to sulfonamides; Z82.49 Family history of ischemic heart disease and other diseases of the circulatory system
CPT/HCPCS: 36415; 71045; 80053; 83605; 85025; 87040; 87804; 94618; 96365; 96375; J0456; J0696; J1100; J1650; J2405; J3490; J7030; J7050; J7060; 99285-25; G0378